=== PATIENT | male | born 1970 | race Caucasian/White ===

== ENCOUNTER 2018-05-17 15:53 | Observation (INO) ==
--- NOTE | 2018-05-17 16:08 | Emergency Department Note ---
Disposition Clinical Impression: Chest pain, Lung nodule, Pericardial effusion Disposition: Admitted As Inpatient Condition: Good General Adult HPI - General Chief complaint: ED Chest Pain Stated complaint: CP Time Seen by Provider: 05/17/18 15:57 Nursing Notes Reviewed: Yes Vital Signs Reviewed: Yes - History of Present Illness Pain Scale: 7 - Related Data Allergies Allergy/AdvReac Type Severity Reaction Status Date / Time No Known Allergies Allergy Verified 05/17/18 15:54 Course Vital Signs Temperature 98.5 F 05/17/18 15:54 Pulse Rate 107 05/17/18 15:54 Respiratory Rate 20 05/17/18 15:54 Blood Pressure 142/89 05/17/18 15:54 O2 Sat by Pulse Oximetry 98 05/17/18 15:54 Temperature 98.5 F 05/17/18 15:59 Pulse Rate 85 05/17/18 17:23 Respiratory Rate 18 05/17/18 17:23 Blood Pressure 138/107 05/17/18 17:23 O2 Sat by Pulse Oximetry 97 05/17/18 17:23 Oxygen Delivery Oxygen Delivery Room Air Medical Decision Making - [facility] Narrative Medical decision making narrative: 1637 hrs.: Patient has d-dimer is greater than 3000. A CT of the chest. Chest X-Ray 05/17/18 15:57 IMPRESSION: No acute process. D/ / Deny Hwang MD / Deny Hwang MD Interpreting Provider: Deny Hwang MD Chest CTA 05/17/18 16:35 IMPRESSION: 1. No evidence of pulmonary embolism. 2. Small nonspecific pericardial effusion. 3. Multiple bilateral pulmonary nodules the largest of which measures approximately 13 x 11 mm in the lingula. See recommendations below. 4. Nonspecific mildly enlarged sub- carinal lymph node. Attention on follow-up. 5. Mild paraseptal emphysematous changes in the pulmonary apices. Fleischner Society guidelines for follow-up and management of incidentally detected pulmonary nodules: Multiple Solid Nodules: Nodule size greater than 8 mm In a high-risk patient, CT at 3-6 months, then CT at 18-24 months. - Low risk patients include individuals with minimal or absent history of smoking and other known risk factors. - High risk patients include individuals with a history or smoking or known risk factors. Radiology 2017 http://pubs.rsna.org/doi/full/10.1148/radiol.[email or web address] D/ / Deny Hwang MD / Deny Hwang MD Interpreting Provider: Deny Hwang MD 1742 hrs.: No PE, he does have multiple bilateral pulmonary nodules which will need followed. Because of this chest pain being atypica, we will Talk to him about coming into the hospital and being ruled out for ACS. - Lab Data Result diagrams: 05/17/18 16:07 05/17/18 16:07 Lab Results 05/17/18 05/17/18 05/17/18 Range/Units 15:58 16:07 16:07 WBC 8.9 (4.3-11.1) K/mcL RBC 4.29 (4.19-5.50) M/mcL Hgb 12.4 L (12.9-16.9) g/dL Hct 37.3 L (37.5-50.1) % MCV 86.9 (83.0-100.0) fL MCH 28.9 (28.0-33.3) pg MCHC 33.2 (31.6-35.5) g/dL RDW 13.2 (11.5-14.5) % Plt Count 246 (140-400) K/mcL MPV 10.2 (9.4-12.4) fL Immature Gran % 0.7 (0-4) % Seg Neutrophils % 75.3 % Lymphocytes % 13.3 % Monocytes % 8.3 % Eosinophils % 2.1 % Basophils % 0.3 % Neutrophils # 6.7 (1.6-8.9) K/mcL Lymphocytes # 1.2 (0.6-4.6) K/mcL Monocytes # 0.7 (0.0-1.3) K/mcL Eosinophils # 0.2 (0.0-0.6) K/mcL Basophils # 0.0 (0.0-0.2) K/mcL D-Dimer 3228 H (0-500) ng/mLFEU Sodium 138 (136-145) mEq/L Potassium 3.7 (3.5-5.1) mEq/L Chloride 105 (98-107) mEq/L Carbon Dioxide 24 (23-29) mEq/L BUN 12 (6-20) mg/dL Creatinine 0.83 (0.70-1.30) mg/dL Est GFR ( Amer) > 60 (> 60) Est GFR (Non-Af Amer) > 60 (> 60) BUN/Creatinine Ratio 14 (6-26) Glucose 96 (70-105) mg/dL Calculated Osmolality 286 (280-300) Calcium 9.1 (8.6-10.3) mg/dL Troponin I < 0.03 (< 0.04) ng/mL Attestation Statement - Attestation Attestation: This documentation is done with the assistance of Dragon dictation. Despite efforts made to ensure accuracy, there may be inaccuracies in professor of forest planning or spelling and typographical errors. I examined this patient and my medical decision-making was reviewed with the Resident Physician. I agree with the documented findings, disposition and treatment plan as described except to the extent set forth below. Patient was seen and evaluated on arrival with Dr. Rodriguez and myself, agrees his evaluation and management plan, supervise care the patient's stay. Intermittent sharp chest pains been going across his neck and into the shoulder for about the last week and a half. Sits only takes a deep breath or moves. It is not reproducible here in the department. No history of cardiac disease in the past. He is a smoker father did have an MS at age 55 and . Regular cardiac workup and then reassess. He is in agreement with plan.
[2018-05-17] MEDS ORDERED: 0.9 % Sodium Chloride 1,000 ML IVC ONE (16:09)
[2018-05-17] MEDS ORDERED: Aspirin 81 MG TAB.CHEW PO ONE (16:09)
--- NOTE | 2018-05-17 16:09 | Emergency Department Note ---
Disposition Clinical Impression: Lung nodule, Pericardial effusion Chest pain Qualifiers: Chest pain type: unspecified Qualified Code(s): R07.9 - Chest pain, unspecified Disposition: Admitted As Inpatient Condition: Good Referrals: Lore De Jesus CNP [Primary Care Provider] - Forms: ED Satisfaction Letter Time of Disposition: 17:49 Chest Pain HPI - General Chief Complaint: ED Chest Pain Stated Complaint: CP Time Seen by Provider: 05/17/18 15:57 Source: patient Mode of arrival: ambulatory Limitations: no limitations Vital Signs Reviewed: Yes Nursing Notes Reviewed: Yes - History of Present Illness HPI Narrative: Patient presents to the ED with the chief complaint of chest pain. Patient reports that over the last week he has had some centralized chest heaviness and discomfort that is very pleuritic in nature. Does not seem to be worse with exertion and has no associated dyspnea, diaphoresis or nausea. He states today his pain changed and was a heavy pressure that radiated into his left neck, jaw and shoulder. Was intermittent and went away after a few minutes. He has no history of DVT or PE. No history of malignancy. His father did at an early age around 55 from heart disease, he does smoke and has a history of hyperlipidemia. States that the pain is gone right now. He still just feels funny. No fever, chills, cough, abdominal proceed nausea, vomiting or diarrhea. Severity scale (1-10): 7 - Related Data Allergies Allergy/AdvReac Type Severity Reaction Status Date / Time No Known Allergies Allergy Verified 05/17/18 15:54 Review of Systems: As reviewed in the HPI. All other systems reviewed are negative or normal. Chest Pain PMH - Past Medical History Medical history: Reports: hyperlipidemia, hypertension, syncope Psychiatric history: Reports: no psych history - Social History Smoking Status: Current every day smoker Alcohol use: Reports: occasionally Drug use: Reports: none Physical Exam - General Limitations: no limitations General appearance: alert, in no apparent distress - Head Head exam: atraumatic, normocephalic, normal inspection - Eye Eye exam: Present: normal appearance, PERRL, EOMI - ENT ENT exam: normal exam, normal oropharynx, mucous membranes moist - Neck Neck exam: Present: normal inspection, full ROM, trachea midline - Chest Chest inspection: Present: normal inspection, symmetric chest wall rise - Respiratory Respiratory exam: Present: normal lung sounds bilaterally - Cardiovascular Cardiovascular exam: Present: normal rhythm, tachycardia, normal heart sounds - Abdominal Exam Abdominal exam: Present: soft, Non-Tender. Absent: tenderness, distention, guarding, rebound, rigidity - Extremities Exam Extremities exam: Present: normal inspection, full ROM. Absent: tenderness, pedal edema - Expanded Lower Extremity Exam Hip/Pelvis exam: Present: normal inspection, full ROM - Back Exam Back exam: Present: normal inspection, full ROM. Absent: tenderness - Neurological Exam Neurological exam: Present: alert, oriented X3 - Psychiatric Psychiatric exam: Present: normal affect, normal mood - Skin Skin exam: Present: warm, dry, intact, normal color Course Course Narrative: We will get labs, EKG, chest x-ray and d-dimer. - Reevaluation(s) Reevaluation #1: D-dimer is extremely elevated. We will get a CT of the chest Reevaluation #2: CT showed multiple lung nodules as well as a small pericardial effusion. Due to his new pain and never having previous cardiac workup with strong family history, smoking history, hyperlipidemia, history would recommend admission in the hospital. Also think he would need an echocardiogram to further evaluate this pericardial effusion and will certainly need follow-up for his lung nodules. Discussed smoking cessation with the patient. We will admit the hospitalist service. Dr. Marshall Vital Signs Temperature 98.5 F 05/17/18 15:54 Pulse Rate 107 05/17/18 15:54 Respiratory Rate 20 05/17/18 15:54 Blood Pressure 142/89 05/17/18 15:54 O2 Sat by Pulse Oximetry 98 05/17/18 15:54 Temperature 98.5 F 05/17/18 15:59 Pulse Rate 85 05/17/18 17:23 Respiratory Rate 18 05/17/18 17:23 Blood Pressure 138/107 05/17/18 17:23 O2 Sat by Pulse Oximetry 97 05/17/18 17:23 Oxygen Delivery Oxygen Delivery Room Air Chest Pain - Medical Records Medical records reviewed: Yes I reviewed the patient's medical records. - Lab Data Lab results reviewed: Yes I reviewed the patient's lab results. Result diagrams: 05/17/18 16:07 05/17/18 16:07 Lab Results 05/17/18 05/17/18 05/17/18 Range/Units 15:58 16:07 16:07 WBC 8.9 (4.3-11.1) K/mcL RBC 4.29 (4.19-5.50) M/mcL Hgb 12.4 L (12.9-16.9) g/dL Hct 37.3 L (37.5-50.1) % MCV 86.9 (83.0-100.0) fL MCH 28.9 (28.0-33.3) pg MCHC 33.2 (31.6-35.5) g/dL RDW 13.2 (11.5-14.5) % Plt Count 246 (140-400) K/mcL MPV 10.2 (9.4-12.4) fL Immature Gran % 0.7 (0-4) % Seg Neutrophils % 75.3 % Lymphocytes % 13.3 % Monocytes % 8.3 % Eosinophils % 2.1 % Basophils % 0.3 % Neutrophils # 6.7 (1.6-8.9) K/mcL Lymphocytes # 1.2 (0.6-4.6) K/mcL Monocytes # 0.7 (0.0-1.3) K/mcL Eosinophils # 0.2 (0.0-0.6) K/mcL Basophils # 0.0 (0.0-0.2) K/mcL D-Dimer 3228 H (0-500) ng/mLFEU Sodium 138 (136-145) mEq/L Potassium 3.7 (3.5-5.1) mEq/L Chloride 105 (98-107) mEq/L Carbon Dioxide 24 (23-29) mEq/L BUN 12 (6-20) mg/dL Creatinine 0.83 (0.70-1.30) mg/dL Est GFR ( Amer) > 60 (> 60) Est GFR (Non-Af Amer) > 60 (> 60) BUN/Creatinine Ratio 14 (6-26) Glucose 96 (70-105) mg/dL Calculated Osmolality 286 (280-300) Calcium 9.1 (8.6-10.3) mg/dL Troponin I < 0.03 (< 0.04) ng/mL - Radiology Data Radiology results reviewed: Yes I reviewed the patient's radiology results. - EKG Data EKG attestation: Yes I reviewed and interpreted this EKG. EKG results narrative: Sinus tach, rate 104, NV interval 168, QRS 78, QTC 370, normal axis, no ischemic changes.
[2018-05-17 16:21] LABS: Basophils % 0.3 %; Eosinophils # 0.2 K/mcL (0.0-0.6); Eosinophils % 2.1 %; Hematocrit 37.3 % (37.5-50.1); Hemoglobin 12.4 g/dL (12.9-16.9); Immature Granulocytes % 0.7 % (0-4); Lymphocytes # 1.2 K/mcL (0.6-4.6); Lymphocytes % 13.3 %; Mean Corpuscular HGB Conc 33.2 g/dL (31.6-35.5); Mean Corpuscular Hemoglobin 28.9 pg (28.0-33.3); Mean Corpuscular Volume 86.9 fL (83.0-100.0); Mean Platelet Volume 10.2 fL (9.4-12.4); Monocytes # 0.7 K/mcL (0.0-1.3); Monocytes % 8.3 %; Neutrophils # 6.7 K/mcL (1.6-8.9); Platelet Count 246 K/mcL (140-400); Red Blood Count 4.29 M/mcL (4.19-5.50); Red Cell Distribution Width 13.2 % (11.5-14.5); Segmented Neutrophils % 75.3 %
[2018-05-17] MEDS ORDERED: Isovue-370 500 ML INFUS..BTL IV ONE (16:35)
[2018-05-17 16:43] LABS: BUN/Creatinine Ratio 14 (6-26); Blood Urea Nitrogen 12 mg/dL (6-20); Calcium 9.1 mg/dL (8.6-10.3); Carbon Dioxide 24 mEq/L (23-29); Chloride 105 mEq/L (98-107); Glucose 96 mg/dL (70-105); Osmolality,Calculated 286 (280-300); Potassium 3.7 mEq/L (3.5-5.1); Sodium 138 mEq/L (136-145); eGFR For African Americans > 60 (> 60); eGFR For Non-African Americans > 60 (> 60)
[2018-05-17 16:44] LABS: Troponin I < 0.03 ng/mL (< 0.04)
--- NOTE | 2018-05-17 20:43 | Internal Med History&Physical ---
Date of Encounter: 05/17/18 Time of Encounter: 07:00 Internal Medicine - H&P: HPI Chief complaint: CP History of present illness: Mr. Goodrich is a 48 year old male presented with one week history of centralized chest heaviness with pleuritic component that radiated into his left neck, jaw and shoulder. CT showed multiple lung nodules as well as a small pericardial effusion. giving strong family history, smoking history, hyperlipidemia, he was admitted for further evaluation Past Med Surg Social Fam HX - Past Medical History Medical history: hyperlipidemia, hypertension, syncope Psychiatric history: no psych history - Past Surgical History Additional surgical history: eye surgery - Social History Smoking Status: Current every day smoker Smokeless Tobacco Status: No Alcohol use: occasionally Drug use: none Internal Medicine - H&P: Meds Aspirin [Lo-Dose Aspirin EC] 81 mg DAILY 05/17/18 [History] Escitalopram [Lexapro] 10 mg DAILY 05/17/18 [History] Fludrocortisone Acetate [Florinef] 0.1 mg DAILY 05/17/18 [History] Gemfibrozil [Lopid] 600 mg BID 05/17/18 [History] Lansoprazole [Prevacid] 30 mg DAILY 05/17/18 [History] 3 Allergy/AdvReac Type Severity Reaction Status Date / Time No Known Allergies Allergy Verified 05/17/18 15:54 All Systems PM: A 10-system review of systems was performed and is negative for pertinent findings except as documented above in the HPI. - Constitutional Constitutional: no chills, no fever(s), no night sweats - Cardiovascular Cardiovascular ROS IM: chest pain, dyspnea, no diaphoresis, no lightheadedness, no palpitations, no syncope - Respiratory Respiratory: dyspnea, no cough, no wheezing, no excessive phlegm production - Gastrointestinal Gastrointestinal: no abdominal pain, no diarrhea, no hematemesis, no hematochezia, no melena, no nausea, no vomiting - Musculoskeletal Musculoskeletal ROS IM: no numbness, no tingling - Neurological Neurological ROS: no confusion, no convulsions, no focal weakness, no numbness, no tingling, no tremor(s) - Constitutional Vitals: Temp Pulse Resp BP Pulse Ox 98 F 85 15 127/86 99 05/17/18 19:39 05/17/18 19:39 05/17/18 19:39 05/17/18 19:39 05/17/18 19:39 General appearance: Present: A&O X 3 - Head Head exam: Present: atraumatic, normocephalic - Neck Neck exam general surgery: Present: supple, trachea midline. Absent: lymphadenopathy - Respiratory Respiratory exam: Present: CTAB. Absent: accessory muscle use, rales, rhonchi, wheezes - Cardiovascular Cardiovascular exam: Present: RRR, +S1, +S2. Absent: diastolic murmur, gallop, rubs, systolic murmur - GI/Abdominal GI/Abdominal exam: Present: normal bowel sounds, soft, no peritoneal signs. Absent: distended, tenderness - Extremities Exam Extremities exam: Present: warm, radial pulses palpable and symmetrical. Absent : calf tenderness, cyanotic, pedal edema Internal Med - H&P Results - Labs CBC & Chem 7: 05/18/18 02:52 05/18/18 02:52 - Assessment and plan (1) Chest pain Current Visit: Yes Status: Acute Assessment and plan: ASSESSMENT: - Chest pain DD *CAD *Muskuloskeletal CP - myofascial strain, costochondritis *GERD *Esophageal spasm *Pericarditis - PLAN: - cardiac enzymes x 2 q 8 hr - EKG now and in AM - ASA - O2 by NC to keep SpO2 greater than 92% - UA - Urine toxic screen - CBCD, BMP in AM - Fasting lipids - Morphine 2 mg IV q 2-4 hr PRN chest pain - Tylenol 650 mg PO q 4-6 hr PRN headache - Home meds (check list) - Heparin 5000 U SQ BID - 2D Echo - Cardiology consult Qualifiers: Chest pain type: unspecified Qualified Code(s): R07.9 - Chest pain, unspecified (2) Pericardial effusion Current Visit: Yes Status: Acute Assessment and plan: We will obtain echo. (3) Lung nodule Current Visit: Yes Status: Acute Assessment and plan: CT scan revealed Multiple bilateral pulmonary nodules the largest of which measures approximately 13 x 11 mm in the lingula. will consult pulmonary. (4) DVT prophylaxis Current Visit: Yes Status: Acute Assessment and plan: Heparin - Time Spent With Patient Total time spent is greater than 50% in coordination of care (as documented) at patient's floor/unit and/or counseling patient:
[2018-05-17] MEDS ORDERED: Naloxone 0.4 MG/ML INJ IVP PRN (20:44)
[2018-05-17 21:00] LABS: INR 1.2; Prothrombin Time 13.4 Seconds (9.4-12.1)
[2018-05-17] MEDS: 0.9 % Sodium Chloride 1,000 ML IVC SCH (22:44)
[2018-05-17 22:48] LABS: Bilirubin,Urine Negative (Negative); Blood,Urine Negative (Negative); Clarity,Urine Clear (Clear); Color,Urine Yellow (Yellow); Glucose,Urine (UA) Normal (Normal); Ketones,Urine Negative (Negative); Leukocyte Esterase,Urine Negative (Negative); Nitrite,Urine Negative (Negative); PH,Urine 6.5 pH Units (5.0-8.0); Protein,Urine Negative (Neg-Trace); Specific Gravity,Urine > 1.030 (1.010-1.025); Urobilinogen,Urine Normal (Normal)
[2018-05-17] MEDS: Aspirin 81 MG TAB.CHEW PO SCH (23:11)
[2018-05-18 03:37] LABS: Hematocrit 33.8 % (37.5-50.1); Hemoglobin 11.1 g/dL (12.9-16.9); Mean Corpuscular HGB Conc 32.8 g/dL (31.6-35.5); Mean Corpuscular Volume 88.3 fL (83.0-100.0); Platelet Count 200 K/mcL (140-400); Red Blood Count 3.83 M/mcL (4.19-5.50); Red Cell Distribution Width 13.2 % (11.5-14.5)
[2018-05-18 04:05] LABS: Alanine Aminotransferase 16 Units/L (7-52); Albumin 3.3 g/dL (3.5-5.7); Albumin/Globulin Ratio 1.3 (1.1-2.2); Alkaline Phosphatase 124 Units/L (34-104); Aspartate Amino Transferase 15 Units/L (13-39); BUN/Creatinine Ratio 15 (6-26); Bilirubin,Total 0.4 mg/dL (0.3-1.0); Blood Urea Nitrogen 12 mg/dL (6-20); Calcium 8.3 mg/dL (8.6-10.3); Carbon Dioxide 25 mEq/L (23-29); Chloride 108 mEq/L (98-107); Chol/HDL Ratio 3.7 (0-4.9); Cholesterol 115 mg/dL (< 200); Globulin 2.6 g/dL (2.4-3.5); Glucose 129 mg/dL (70-105); HDL Cholesterol 31 mg/dL (40-59); LDL Cholesterol,Calculated 59 mg/dL (0-99); Magnesium 2.1 mg/dL (1.6-2.6); Osmolality,Calculated 289 (280-300); Phosphorous 2.5 mg/dL (2.7-4.5); Potassium 3.5 mEq/L (3.5-5.1); Sodium 139 mEq/L (136-145); Total Protein 5.9 g/dL (6.4-8.9); Triglycerides 127 mg/dL (< 150); eGFR For African Americans > 60 (> 60); eGFR For Non-African Americans > 60 (> 60)
--- NOTE | 2018-05-18 06:55 | Pulmonology Consult Note ---
Date of Encounter: 05/18/18 Time of Encounter: 06:54 Assessment and Plan (1) Lung nodule Current Visit: Yes Status: Acute In conclusion this is a pleasant 48-year-old woman who presented with chest pain fentanyl small pericardial effusion. He has multiple risk factors for coronary disease in the past but no evidence of acute ischemia from a cardiac since during workup up to this point. CTA was performed was normal bilateral lung nodules the largest about 1.3 cm in the lingula. The patient is an increased risk for malignancy because of his history of smoking however the lesions himself do not appear to be malignant nature I suspect an acute or less likely chronic inflammatory process given concomitant pericardial effusion. Differential diagnosis would be acute viral syndrome and more chronic in nature could be things like rheumatoid arthritis or SLE less likely sarcoidosis but that could be entertained in the differential. Primary lung malignancy would be consider unlikely but he is at increased risk because of this is related to tobacco abuse. In general terms I suspect the patient will need laboratory testing at this time and evaluation by cardiology to rule out cardiac cause an outpatient for a follow-up with the radiographic surveillance of these lesions. Recs: Check inflammatory serologies including SAAD ANCA RF aCCP, ACEi Send sputum culture if can be obtained and viral PCR, along with chronic fungal serologies by immunoassay diffusion Check HIV Echocardiogram and formal cardiology consultation Tobacco abuse counseling was given to the patient nicotine replacement as requested Outpatient pulmonary follow-up for repeat CT scan including likely high- resolution CT scan of the chest and 4-6 weeks; bronchoscopy based upon results of workup/clinical course Outpatient pulmonary function testing DVT prophylaxis while inpatient Please call with any questions I relayed my impression and recommendations to the primary medicine service resident physician Dr. Deluna (2) Chest pain Current Visit: Yes Status: Acute Qualifiers: Chest pain type: unspecified Qualified Code(s): R07.9 - Chest pain, unspecified (3) Pericardial effusion Current Visit: Yes Status: Acute History of Present Illness Consult date: 05/18/18 Requesting physician: Gaby Marshall Reason for consult: abnormal CXR/CT Chief complaint: Chest Pain History of present illness: This is a 48-year-old gentleman who presented to the hospital yesterday for chest pain that was pleuritic in nature. No association with exertion. He denied any dyspnea diaphoresis or nausea. Chest pain prior to admission had changed from the pleuritic nature to have a pressure that radiated does look left neck jaw and shoulder. No history of venous thromboembolism in the past or history of malignancy. In the emergency department blood pressure stable and he had excellent oxygen saturation in the high 90s on room air. Chest x-ray was obtained which was notable for no acute process. He had a follow-up chest CTA performed without evidence of filling defect notable for small nonspecific pericardial effusion and multiple bilateral pulmonary nodules largest of which measured 13 x 11 mm in the lingula. He also had nonspecific mildly enlarged subcarinal lymph node. There was noted paraseptal emphysematous changes in the pulmonary apices. From a pulmonary perspective he started smoking at age of 15 smokes about a pack a day. 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 At home he does raise chickens and has horses along with many dogs [place] the home. No family history of lung disease. But he has a strong family history of coronary artery disease in his father and heart failure in his mother. In general he denies dry eyes or dry mouth or oral lesions difficulty swallowing he denies any significant joint pains that he wakes up with her redness or inflamed joints. Denies weight loss or night sweats or hemoptysis. Denies daily cough or sputum production. Some modest shortness of breath with exertion he has noticed that his felt more tired over last week during the symptoms no sick contacts or recent travel Past Med Surg Social Fam HX - Past Medical History Medical history: hyperlipidemia, hypertension, syncope Psychiatric history: no psych history - Past Surgical History Additional surgical history: eye surgery - Social History Smoking Status: Current every day smoker Smokeless Tobacco Status: No Alcohol use: occasionally Drug use: none Medications and Allergies Aspirin [Lo-Dose Aspirin EC] 81 mg DAILY 05/17/18 [History] Escitalopram [Lexapro] 10 mg DAILY 05/17/18 [History] Fludrocortisone Acetate [Florinef] 0.1 mg DAILY 05/17/18 [History] Gemfibrozil [Lopid] 600 mg BID 05/17/18 [History] Lansoprazole [Prevacid] 30 mg DAILY 05/17/18 [History] 3 Allergy/AdvReac Type Severity Reaction Status Date / Time No Known Allergies Allergy Verified 05/17/18 15:54 All Systems: The remainder of the systems were reviewed and are negative Physical Examination Vital Signs: Vital Signs, Last 4 Hours Temp Pulse Resp BP Pulse Ox 05/18/18 06:37 84 18 113/73 96 05/18/18 03:52 97.7 F 90 16 120/76 96 General appearance: no acute distress Eyes: nonicteric ENT: oropharynx moist, other (No lesions or thrush) Neck: supple Effort: normal Cardiovascular: regular rate and rhythm, other (No rub) Gastrointestinal: normoactive bowel sounds, soft, non-tender Integumentary: normal Extremities: no cyanosis, no edema, no clubbing, pink and warm, pulses normal, no ischemia or petechiae Musculoskeletal: no deformities normal mental status, non-focal exam, pupils equal and round mood appropriate Results - Laboratory Findings CBC and BMP: 05/18/18 02:52 05/18/18 02:52 PT/INR, D-dimer PT 13.4 Seconds (9.4-12.1) H 05/17/18 15:58 D-Dimer 3228 ng/mLFEU (0-500) H 05/17/18 15:58 Abnormal lab findings: Abnormal lab results RBC 3.83 M/mcL (4.19-5.50) L 05/18/18 02:52 Hgb 11.1 g/dL (12.9-16.9) L 05/18/18 02:52 Hct 33.8 % (37.5-50.1) L 05/18/18 02:52 PT 13.4 Seconds (9.4-12.1) H 05/17/18 15:58 D-Dimer 3228 ng/mLFEU (0-500) H 05/17/18 15:58 Chloride 108 mEq/L (98-107) H 05/18/18 02:52 Glucose 129 mg/dL (70-105) H 05/18/18 02:52 Calcium 8.3 mg/dL (8.6-10.3) L 05/18/18 02:52 Phosphorus 2.5 mg/dL (2.7-4.5) L 05/18/18 02:52 Alkaline Phosphatase 124 Units/L (34-104) H 05/18/18 02:52 Serum Total Protein 5.9 g/dL (6.4-8.9) L 05/18/18 02:52 Albumin 3.3 g/dL (3.5-5.7) L 05/18/18 02:52 HDL Cholesterol 31 mg/dL (40-59) L 05/18/18 02:52 Ur Specific [place] > 1.030 (1.010-1.025) H 05/17/18 22:37 - Diagnostic Findings Chest x-ray: report reviewed, image reviewed CT scan - chest: report reviewed, image reviewed - Clinical Findings Intake & Output: Intake & Output 05/17/18 05/17/18 05/18/18 15:59 23:59 07:59 Intake Total 0 / 0 0 / 0 Output Total 550 / 550 400 / 400 Balance -550 / -550 -400 / -400 Weight 99.9 kg 99.9 kg Consult Discharge Plan - Plan Referrals: Lore De Jesus, [employer] [Primary Care Provider] -
[2018-05-18] MEDS: 0.9 % Sodium Chloride 1,000 ML IVC SCH (07:29)
[2018-05-18] MEDS: Aspirin 81 MG TAB.CHEW PO SCH (08:25)
--- NOTE | 2018-05-18 08:35 | Internal Med Progress Note ---
<Chin Deluna - Last Filed: 05/18/18 17:22> Date of Encounter: 05/18/18 Time of Encounter: 12:00 - Assessment and plan (1) Chest pain Current Visit: Yes Status: Acute Assessment and plan: - Etiology unclear at the moment - it could be likely due to mild pericardial effusion, or a potential inflammatory etiology considering the fact that ESR: 77 CRP: 122 - patient in no acute distress at the moment and is not endorsing any pain as of now - Echocardiography, stress test pending. Tests to rule out infectious etiology ( Resp inf panel/ Fungal panel by Immunodiff) pending Qualifiers: Chest pain type: unspecified Qualified Code(s): R07.9 - Chest pain, unspecified; R07.8 - Other chest pain (2) Lung nodule Current Visit: Yes Status: Acute Assessment and plan: - Chest CT showed multiple lung nodules and paraseptal emphysemaous changes, - Pulmonology has been consulted- as per their opinion, the lesion themselves do not appear to be malignant but the patient could be at an increased risk for malignancy because of his smoking Hx - Further work up pending to rule put acute viral syndrome or more chronic conditions like RA , SLE, or less likely sarcoidosis . - (3) Pericardial effusion Current Visit: Yes Status: Acute Assessment and plan: - likely due to some kind of acute inflammtory process. ESR: 77, CRP: 122 - Chest CT showed small non-specifc pericardial effusion, patient presented with pleuritic chest pain on admission - Work up pending to rule out viral/ auto-immune etiology (SLE/RA) (4) DVT prophylaxis Current Visit: Yes Status: Acute Assessment and plan: SQ heparin - Time Spent With Patient Total time spent is greater than 50% in coordination of care (as documented) at patient's floor/unit and/or counseling patient: - Subjective Interval history: 48 y.o male who was admitted for chest pain. No acute events overnight. Patient was A&O*3 when i met him. He did not complain of any chest pain while I was in the room. - Constitutional Vitals: Temp Pulse Resp BP Pulse Ox 97.7 F 84 18 113/73 96 05/18/18 03:52 05/18/18 06:37 05/18/18 06:37 05/18/18 06:37 05/18/18 06:37 General appearance: Present: A&O X 3 - Head Head exam: Present: atraumatic, normocephalic - ENT ENT exam: Present: normal exam - Neck Neck exam general surgery: Present: full ROM, trachea midline - Respiratory Respiratory exam: Present: CTAB Additional comments: no rales, ronchi or wheezing - Cardiovascular Cardiovascular exam: Present: RRR Additional comments: no gallops, murmur or rubs - Neurological Exam Neurological exam: Present: alert, oriented X3 - Psychiatric Additional comments: good mentation Internal Medicine: Result - Labs CBC & Chem 7: 05/18/18 02:52 05/18/18 02:52 Labs: Short CBC 05/18/18 Range/Units 02:52 WBC 6.6 (4.3-11.1) K/mcL Hgb 11.1 L (12.9-16.9) g/dL Hct 33.8 L (37.5-50.1) % Plt Count 200 (140-400) K/mcL BMP 05/18/18 02:52 Sodium 139 Potassium 3.5 Chloride 108 H Carbon Dioxide 25 BUN 12 Creatinine 0.81 Glucose 129 H Calcium 8.3 L Cardiac Enzymes 05/17/18 05/18/18 Range/Units 21:53 02:52 Troponin I < 0.03 < 0.03 (< 0.04) ng/mL Liver Function 05/18/18 Range/Units 02:52 Total Bilirubin 0.4 (0.3-1.0) mg/dL AST 15 (13-39) Units/L ALT 16 (7-52) Units/L Alkaline Phosphatase 124 H (34-104) Units/L Albumin 3.3 L (3.5-5.7) g/dL Urine 05/17/18 Range/Units 22:37 Urine Color Yellow (Yellow) Urine Clarity Clear (Clear) Urine pH 6.5 (5.0-8.0) pH Units Ur Specific Hansen > 1.030 H (1.010-1.025) Urine Protein Negative (Neg-Trace) mg/dL Urine Glucose (UA) Normal (Normal) mg/dL - ABG Interpretation ABG results: PT/INR, D-dimer PT 13.4 Seconds (9.4-12.1) H 05/17/18 15:58 D-Dimer 3228 ng/mLFEU (0-500) H 05/17/18 15:58 Consult Discharge Plan - Plan Referrals: Lore De Jesus, [facility] [Primary Care Provider] - <Glenn Howard - Last Filed: 05/18/18 19:12> Date of Encounter: 05/18/18 - Assessment and plan (1) Pericardial effusion Current Visit: Yes Status: Acute (2) Chest pain Current Visit: Yes Status: Acute Qualifiers: Chest pain type: other chest pain Qualified Code(s): R07.89 - Other chest pain; R07.8 - Other chest pain (3) Lung nodule Current Visit: Yes Status: Acute (4) Tobacco abuse Current Visit: Yes Status: Chronic (5) DVT prophylaxis Current Visit: Yes Status: Acute - Time Spent With Patient Total time spent is greater than 50% in coordination of care (as documented) at patient's floor/unit and/or counseling patient: - Constitutional Vitals: Temp Pulse Resp BP Pulse Ox 98.6 F 90 18 123/85 97 05/18/18 15:38 05/18/18 15:38 05/18/18 15:38 05/18/18 15:38 05/18/18 15:38 Internal Medicine: Result - Labs CBC & Chem 7: 05/18/18 02:52 05/18/18 02:52 Labs: Short CBC 05/18/18 Range/Units 02:52 WBC 6.6 (4.3-11.1) K/mcL Hgb 11.1 L (12.9-16.9) g/dL Hct 33.8 L (37.5-50.1) % Plt Count 200 (140-400) K/mcL BMP 05/18/18 02:52 Sodium 139 Potassium 3.5 Chloride 108 H Carbon Dioxide 25 BUN 12 Creatinine 0.81 Glucose 129 H Calcium 8.3 L Cardiac Enzymes 05/17/18 05/18/18 05/18/18 Range/Units 21:53 02:52 08:38 Troponin I < 0.03 < 0.03 < 0.03 (< 0.04) ng/mL Liver Function 05/18/18 Range/Units 02:52 Total Bilirubin 0.4 (0.3-1.0) mg/dL AST 15 (13-39) Units/L ALT 16 (7-52) Units/L Alkaline Phosphatase 124 H (34-104) Units/L Albumin 3.3 L (3.5-5.7) g/dL Urine 05/17/18 Range/Units 22:37 Urine Color Yellow (Yellow) Urine Clarity Clear (Clear) Urine pH 6.5 (5.0-8.0) pH Units Ur Specific Hansen > 1.030 H (1.010-1.025) Urine Protein Negative (Neg-Trace) mg/dL Urine Glucose (UA) Normal (Normal) mg/dL - ABG Interpretation ABG results: PT/INR, D-dimer PT 13.4 Seconds (9.4-12.1) H 05/17/18 15:58 D-Dimer 3228 ng/mLFEU (0-500) H 05/17/18 15:58 - Attending Attestation I examined this patient and my medical decision-making was reviewed with the Resident Physician on 05/18/18. I agree with the documented findings, disposition and treatment plan as described except to the extent set forth below. Mr Goodrich is currently admitted for bilateral pulmonary nodules and pericardial effusion. He remains moderate to high risk due to potential for worsening clinical status. Mr Goodrich is feeling about the same. No fever or chills. Some cough. Still with some chest pain. Exam alert Comfortable Mucus membranes dry Heart reg Lungs diminished Abd soft I/P 1. Chest pain 2. Pericardial effusion 3. pulmonary nodules. stress test tomorrow. Further diagnoses and plan as above.
--- NOTE | 2018-05-18 08:46 | Electrocardiograph Report ---
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
[2018-05-18 11:41] LABS: Adenovirus Not Detected (Not Detect); Bordetella Pertussis Not Detected (Not Detect); Chlamydophila pneumoniae Not Detected (Not Detect); Coronavirus 229E Not Detected (Not Detect); Coronavirus HKU1 Not Detected (Not Detect); Coronavirus NL63 Not Detected (Not Detect); Coronavirus OC43 Not Detected (Not Detect); Human Metapneumovirus Not Detected (Not Detect); Human Rhinovirus/Enterovirus Not Detected (Not Detect); Influenza A Subtype 2009 H1 Not Detected (Not Detect); Influenza A Untypeable Not Detected (Not Detect); Influenza B Not Detected (Not Detect); Mycoplasma pneumoniae Not Detected (Not Detect); Parainfluenza Virus 1 Not Detected (Not Detect); Parainfluenza Virus 2 Not Detected (Not Detect); Parainfluenza Virus 3 Not Detected (Not Detect); Parainfluenza Virus 4 Not Detected (Not Detect); Respiratory Syncytial Virus Not Detected (Not Detect)
[2018-05-18] MEDS: *HR* Heparin 5,000 UNIT/ML VIAL SQ SCH (17:18)
[2018-05-18] MEDS ORDERED: Acetaminophen 325 MG TABLET PO PRN (21:55)
[2018-05-19 05:07] LABS: Alanine Aminotransferase 32 Units/L (7-52); Albumin 3.4 g/dL (3.5-5.7); Albumin/Globulin Ratio 1.2 (1.1-2.2); Alkaline Phosphatase 203 Units/L (34-104); Aspartate Amino Transferase 27 Units/L (13-39); BUN/Creatinine Ratio 15 (6-26); Bilirubin,Total 0.6 mg/dL (0.3-1.0); Blood Urea Nitrogen 10 mg/dL (6-20); Calcium 8.7 mg/dL (8.6-10.3); Carbon Dioxide 25 mEq/L (23-29); Chloride 109 mEq/L (98-107); Globulin 2.9 g/dL (2.4-3.5); Glucose 95 mg/dL (70-105); Osmolality,Calculated 287 (280-300); Potassium 4.5 mEq/L (3.5-5.1); Sodium 139 mEq/L (136-145); Total Protein 6.3 g/dL (6.4-8.9); eGFR For African Americans > 60 (> 60); eGFR For Non-African Americans > 60 (> 60)
[2018-05-19] MEDS: *HR* Heparin 5,000 UNIT/ML VIAL SQ SCH (05:36)
[2018-05-19 10:18] LABS: Phosphorous 3.1 mg/dL (2.7-4.5)
[2018-05-19] MEDS: Aspirin 81 MG TAB.CHEW PO SCH (10:30)
--- NOTE | 2018-05-19 11:17 | Internal Med Progress Note ---
<Chin Deluna - Last Filed: 05/19/18 12:29> Date of Encounter: 05/19/18 Time of Encounter: 11:30 - Assessment and plan (1) Chest pain Current Visit: Yes Status: Acute Assessment and plan: - Etiology unclear at the moment - it could be likely due to mild pericardial effusion, or a potential inflammatory etiology considering the fact that ESR: 77 CRP: 122 - patient in no acute distress at the moment and is not endorsing any pain as of now - Echocardiography findings are WNL. stress test performed this morning, results pending. Tests to rule out infectious etiology (Resp inf panel/ Fungal panel by Immunodiff) pending Qualifiers: Chest pain type: other chest pain Qualified Code(s): R07.89 - Other chest pain; R07.8 - Other chest pain (2) Lung nodule Current Visit: Yes Status: Acute Assessment and plan: - Chest CT showed multiple lung nodules and paraseptal emphysemaous changes, - Pulmonology has been consulted- as per their opinion, the lesion themselves do not appear to be malignant but the patient could be at an increased risk for malignancy because of his smoking Hx - Further work up pending to rule put acute viral syndrome or more chronic conditions like RA , SLE, or less likely sarcoidosis . (3) Pericardial effusion Current Visit: Yes Status: Acute Assessment and plan: likely due to some kind of acute inflammtory process. ESR: 77, CRP: 122 - Chest CT showed small non-specifc pericardial effusion, patient presented with pleuritic chest pain on admission - Work up pending to rule out viral/ auto-immune etiology (SLE/RA) (4) DVT prophylaxis Current Visit: Yes Status: Acute Assessment and plan: sc heparin (5) Tobacco abuse Current Visit: Yes Status: Chronic Assessment and plan: counselled on smoking cessation - Time Spent With Patient Total time spent is greater than 50% in coordination of care (as documented) at patient's floor/unit and/or counseling patient: - Subjective Interval history: 48 y.o male who was admitted for chest pain. Patient has gone for the stress test . No acute events overnight. . no acute events overnight - Constitutional Vitals: Temp Pulse Resp BP Pulse Ox 97.8 F 97 17 120/80 92 05/19/18 10:17 05/19/18 10:17 05/19/18 10:17 05/19/18 10:17 05/19/18 10:17 General appearance: Present: A&O X 3 - Head Head exam: Present: atraumatic, normocephalic - ENT ENT exam: Present: normal exam - Respiratory Respiratory exam: Present: CTAB - Cardiovascular Cardiovascular exam: Present: RRR Internal Medicine: Result - Labs CBC & Chem 7: 05/18/18 02:52 05/19/18 04:24 Labs: BMP 05/19/18 04:24 Sodium 139 Potassium 4.5 Chloride 109 H Carbon Dioxide 25 BUN 10 Creatinine 0.67 L Glucose 95 Calcium 8.7 Liver Function 05/19/18 Range/Units 04:24 Total Bilirubin 0.6 (0.3-1.0) mg/dL AST 27 (13-39) Units/L ALT 32 (7-52) Units/L Alkaline Phosphatase 203 H (34-104) Units/L Albumin 3.4 L (3.5-5.7) g/dL - ABG Interpretation ABG results: PT/INR, D-dimer PT 13.4 Seconds (9.4-12.1) H 05/17/18 15:58 D-Dimer 3228 ng/mLFEU (0-500) H 05/17/18 15:58 - Impressions Impressions Echocardiogram 05/18/18 06:13 Impressions: LVEF 60%. Normal LV chamber size, wall thickness and function. Mild left ventricular diastolic dysfunction. Normal right ventricular structure and function. No evidence of pulmonary hypertension. No significant valvular dysfunction. Small pericardial effusion. No evidence of tamponade. Left Ventricular Wall Motion: Rest Echo Findings All wall segments showed normal motion. Findings: Study Quality * Technically adequate exam. ECG Findings * Normal sinus rhythm. Left Ventricle * LVEF 60%. * Normal LV chamber size, wall thickness and function. * Mild left ventricular diastolic dysfunction. Right Ventricle * Normal right ventricular structure and function. Left Atrium * Mildly dilated left atrium. Right Atrium * Normal right atrial size. Aortic Valve * Aortic valve not well visualized. * No aortic regurgitation. * No aortic stenosis. Mitral Valve * Normal mitral valve structure and function. * No mitral regurgitation. * No mitral stenosis. Tricuspid Valve * Normal tricuspid valve structure and function. * Trace tricuspid regurgitation. * No evidence of pulmonary hypertension. Pulmonic Valve * Pulmonic valve not well visualized. * No pulmonic regurgitation. Aorta * Normally sized aortic root. Pericardium * Small pericardial effusion. No evidence of tamponade. Pulmonary Artery * Normal visualized portions of the main pulmonary artery. IVC * The IVC is not dilated. Consult Discharge Plan - Plan Instructions: Chest Pain (DC), Pericardial Effusion (DC), Pericardial Effusion (GEN), Pulmonary Nodules (DC), Pulmonary Nodules (GEN), Cigarette Smoking and Your Health, Dedicated Regional Driver (GEN) Referrals: Lore De Jesus CNP [Primary Care Provider] - Jasen Ramirez MD [Partnered Physician] - (Follow up in 2 weeks. Pt can only have a Tuesday appointment. Call on Tuesday to make an appointment. ) <Glenn Howard - Last Filed: 05/19/18 18:04> Date of Encounter: 05/19/18 - Assessment and plan (1) Chest pain Current Visit: Yes Status: Acute Qualifiers: Chest pain type: other chest pain Qualified Code(s): R07.89 - Other chest pain; R07.8 - Other chest pain (2) Lung nodule Current Visit: Yes Status: Acute (3) Pericardial effusion Current Visit: Yes Status: Acute (4) DVT prophylaxis Current Visit: Yes Status: Acute (5) Tobacco abuse Current Visit: Yes Status: Chronic - Time Spent With Patient Total time spent is greater than 50% in coordination of care (as documented) at patient's floor/unit and/or counseling patient: - Constitutional Vitals: Temp Pulse Resp BP Pulse Ox 98.5 F 89 18 124/90 95 05/19/18 15:18 05/19/18 15:18 05/19/18 15:18 05/19/18 15:18 05/19/18 15:18 Internal Medicine: Result - Labs CBC & Chem 7: 05/18/18 02:52 05/19/18 04:24 Labs: BMP 05/19/18 04:24 Sodium 139 Potassium 4.5 Chloride 109 H Carbon Dioxide 25 BUN 10 Creatinine 0.67 L Glucose 95 Calcium 8.7 Liver Function 05/19/18 Range/Units 04:24 Total Bilirubin 0.6 (0.3-1.0) mg/dL AST 27 (13-39) Units/L ALT 32 (7-52) Units/L Alkaline Phosphatase 203 H (34-104) Units/L Albumin 3.4 L (3.5-5.7) g/dL - ABG Interpretation ABG results: PT/INR, D-dimer PT 13.4 Seconds (9.4-12.1) H 05/17/18 15:58 D-Dimer 3228 ng/mLFEU (0-500) H 05/17/18 15:58 - Impressions Impressions Echocardiogram 05/18/18 06:13 Impressions: LVEF 60%. Normal LV chamber size, wall thickness and function. Mild left ventricular diastolic dysfunction. Normal right ventricular structure and function. No evidence of pulmonary hypertension. No significant valvular dysfunction. Small pericardial effusion. No evidence of tamponade. Left Ventricular Wall Motion: Rest Echo Findings All wall segments showed normal motion. Findings: Study Quality * Technically adequate exam. ECG Findings * Normal sinus rhythm. Left Ventricle * LVEF 60%. * Normal LV chamber size, wall thickness and function. * Mild left ventricular diastolic dysfunction. Right Ventricle * Normal right ventricular structure and function. Left Atrium * Mildly dilated left atrium. Right Atrium * Normal right atrial size. Aortic Valve * Aortic valve not well visualized. * No aortic regurgitation. * No aortic stenosis. Mitral Valve * Normal mitral valve structure and function. * No mitral regurgitation. * No mitral stenosis. Tricuspid Valve * Normal tricuspid valve structure and function. * Trace tricuspid regurgitation. * No evidence of pulmonary hypertension. Pulmonic Valve * Pulmonic valve not well visualized. * No pulmonic regurgitation. Aorta * Normally sized aortic root. Pericardium * Small pericardial effusion. No evidence of tamponade. Pulmonary Artery * Normal visualized portions of the main pulmonary artery. IVC * The IVC is not dilated. - Attending Attestation I examined this patient and my medical decision-making was reviewed with the Resident Physician on 05/19/18. I agree with the documented findings, disposition and treatment plan as described except to the extent set forth below. Please see discharge summary of this date.
[2018-05-19 15:21] VITALS: BP 124/90
--- NOTE | 2018-05-19 16:24 | Discharge Summary ---
- NOTES TO OUTPATIENT PROVIDER Notes to Outpatient Provider: Mr Goodrich was hospitalized for bilateral pulmonary nodules. He was seen by pulmonary and this was felt to be noninfectious and most likely not malignant. He was having some chest pain and stress was negative. Labs are pending at this time. Orders not resulted at time of discharge: Pending orders 05/18/18 10:02 Angiotensin Converting Enzyme Routine Fungal Ab by Immunodiffusion Routine MPO/PR3 (ANCA) Antibodies Routine 05/18/18 10:03 SAAD IgG ESAU rflx IFA Routine 05/19/18 08:53 NM jenni perf SPECT multi [NM] Routine Date of Encounter: 05/19/18 Time of Encounter: 15:00 - Discharge Diagnosis (1) Pericardial effusion Priority: Primary Status: Acute (2) Chest pain Priority: Secondary Status: Resolved Qualifiers: Chest pain type: other chest pain Qualified Code(s): R07.89 - Other chest pain; R07.8 - Other chest pain (3) Lung nodule Priority: Secondary Status: Chronic (4) Tobacco abuse Priority: Secondary Status: Chronic Hospital course: Mr. Goodrich is a 48 year old male - Time Spent with Patient Total time spent providing and/or coordinating discharge services: - Discharge Medications Home Medications: Aspirin [Lo-Dose Aspirin EC] 81 mg PO QPM 05/17/18 [History] Escitalopram [Lexapro] 10 mg DAILY 05/17/18 [History] Fludrocortisone Acetate [Florinef] 0.1 mg PO DAILY 05/17/18 [History] Gemfibrozil [Lopid] 600 mg PO BID 05/17/18 [History] Lansoprazole [Prevacid] 30 mg PO DAILY 05/17/18 [History] Cholecalciferol (D-3) [Vitamin D] 5,000 unit PO DAILY 05/18/18 [History] Mv-Mn/FA/Lycopene/Lut/Hb#178 [Toi Multivit For Men Caplet] 1 tab PO DAILY 05/18 [History] [place]-3/Dha/Epa/Fish Oil [Fish Oil 1,000 mg Softgel] 1 cap PO BID 05/18/18 [ History] Allergies/Adverse Reactions: 3 Allergy/AdvReac Type Severity Reaction Status Date / Time No Known Allergies Allergy Verified 05/18/18 10:17 Date of admission: 05/17/18 18:13 Primary care physician: Lore De Jesus CNP Consults: 05/18/18 06:18 Consult to Pulmonology [CONS] Routine Consulting Provider: [facility] Reason for Consult: Multiple bilateral pulmonary nodules the largest of which measures approximately 13 x 11 mm in the lingula. Time Notified: 06:18 Call Completed: Yes Discharging clinician: Glenn Howard Anticipated date of discharge: 05/19/18 - Constitutional Vitals: Temp Pulse Resp BP Pulse Ox 98.5 F 89 18 124/90 95 05/19/18 15:18 05/19/18 15:18 05/19/18 15:18 05/19/18 15:18 05/19/18 15:18 General appearance: Present: A&O X 3 - Patient Status Disposition: Home, Self-Care Condition: Good Functional capacity at discharge: independent ambulation Overall status at discharge: patient is progressing back to baseline - Discharge Instructions Instructions: Chest Pain (DC), Pericardial Effusion (DC), Pericardial Effusion (GEN), Pulmonary Nodules (DC), Pulmonary Nodules (GEN), Cigarette Smoking and Your Health, Stereotyper Helper (GEN) Follow Up With: Lore De Jesus CNP [Primary Care Provider] - 06/19/18 8:10 am Jasen Ramirez MD [Partnered Physician] - (Follow up in 2 weeks. Pt can only have a Tuesday appointment. Call on Tuesday to make an appointment. ) - Diet and Activity Activity: increase activity as tolerated Diet: advance to your usual diet
[2018-05-20 11:05] LABS: ANA IgG by ELISA NONE DETECTED (None Detected)
[2018-05-20 11:51] LABS: Myeloperoxidase Ab 43 AU/mL (0-19); Serine Protease-3 Antibody 0 AU/mL (0-19)
[2018-05-22 08:26] LABS: Aspergillus spp. Ab by ID NONE DETECTED (None Detected); Blastomyces dermatitidis Ab ID NONE DETECTED (None Detected); Coccidioides immitis Ab by ID NONE DETECTED (None Detected); Histoplasma spp.Ab by ID NONE DETECTED (None Detected)
== END 2018-05-19 18:28 | disposition home or self-care (01) ==
LOC: 2NENU 15:53 → EMEROO 15:53 → SUATTDRO 18:13 → 2NENU 19:02
PROVIDERS: ADMIT Internal Medicine Nephrology; ATTEND Internal Medicine

== ENCOUNTER 2018-05-25 17:39 | Inpatient (IN) ==
[2018-05-25 18:36] LABS: Basophils % 0.4 %; Eosinophils # 0.2 K/mcL (0.0-0.6); Eosinophils % 2.3 %; Hematocrit 33.7 % (37.5-50.1); Immature Granulocytes % 0.6 % (0-4); Lymphocytes # 0.9 K/mcL (0.6-4.6); Lymphocytes % 9.8 %; Mean Corpuscular HGB Conc 32.6 g/dL (31.6-35.5); Mean Corpuscular Hemoglobin 28.4 pg (28.0-33.3); Mean Corpuscular Volume 86.9 fL (83.0-100.0); Mean Platelet Volume 9.9 fL (9.4-12.4); Monocytes # 0.8 K/mcL (0.0-1.3); Monocytes % 7.9 %; Neutrophils # 7.6 K/mcL (1.6-8.9); Platelet Count 333 K/mcL (140-400); Red Blood Count 3.88 M/mcL (4.19-5.50); Red Cell Distribution Width 13.3 % (11.5-14.5)
--- NOTE | 2018-05-25 18:46 | Emergency Department Note ---
Disposition Clinical Impression: Chest pain, Pericardial effusion, Pneumonia Disposition: Admitted As Inpatient Condition: Good Referrals: Lore De Jesus, BOAT WR[employer]PER [Primary Care Provider] - Forms: ED Satisfaction Letter General Adult HPI - General Chief complaint: ED Chest Pain Stated complaint: CP Time Seen by Provider: 05/25/18 17:47 - History of Present Illness Pain Scale: 10 - Related Data Home Medications Medication Instructions Recorded Confirmed Aspirin [Lo-Dose Aspirin EC] 81 mg PO QPM 05/17/18 05/25/18 Escitalopram [Lexapro] 10 mg PO DAILY 05/17/18 05/25/18 Fludrocortisone Acetate [Florinef] 0.1 mg PO DAILY 05/17/18 05/25/18 Gemfibrozil [Lopid] 600 mg PO BID 05/17/18 05/25/18 Lansoprazole [Prevacid] 30 mg PO DAILY 05/17/18 05/25/18 Cholecalciferol (D-3) [Vitamin D] 5,000 unit PO DAILY 05/18/18 05/25/18 Mv-Mn/FA/Lycopene/Lut/Hb#178 [Toi 1 tab PO DAILY 05/18/18 05/25/18 Multivit For Men Caplet] [place]-3/Dha/Epa/Fish Oil [Fish Oil 1 cap PO BID 05/18/18 05/25/18 1,000 mg Softgel] Allergies Allergy/AdvReac Type Severity Reaction Status Date / Time No Known Allergies Allergy Verified 05/18/18 10:17 Past Medical History - Past Medical History Medical history: Reports: hyperlipidemia, hypertension, syncope Psychiatric history: Reports: no psych history - Social History Smoking Status: Current every day smoker Smokeless Tobacco Status: No Alcohol use: Reports: occasionally Drug use: Reports: none Course Vital Signs Temperature 100.2 F H 05/25/18 17:42 Pulse Rate 109 05/25/18 17:42 Respiratory Rate 20 05/25/18 17:42 Blood Pressure 126/87 05/25/18 17:42 O2 Sat by Pulse Oximetry 96 05/25/18 17:42 Temperature 99.2 F 05/25/18 20:50 Pulse Rate 95 05/25/18 20:50 Respiratory Rate 18 05/25/18 20:50 Blood Pressure 130/80 05/25/18 20:50 O2 Sat by Pulse Oximetry 97 05/25/18 20:59 Oxygen Delivery Oxygen Delivery Room Air Medical Decision Making - Lab Data Result diagrams: 05/25/18 18:08 05/25/18 18:08 Lab Results 05/25/18 05/25/18 05/25/18 Range/Units 18:08 18:08 18:08 WBC 9.6 (4.3-11.1) K/mcL RBC 3.88 L (4.19-5.50) M/mcL Hgb 11.0 L (12.9-16.9) g/dL Hct 33.7 L (37.5-50.1) % MCV 86.9 (83.0-100.0) fL MCH 28.4 (28.0-33.3) pg MCHC 32.6 (31.6-35.5) g/dL RDW 13.3 (11.5-14.5) % Plt Count 333 (140-400) K/mcL MPV 9.9 (9.4-12.4) fL Immature Gran % 0.6 (0-4) % Seg Neutrophils % 79.0 % Lymphocytes % 9.8 % Monocytes % 7.9 % Eosinophils % 2.3 % Basophils % 0.4 % Neutrophils # 7.6 (1.6-8.9) K/mcL Lymphocytes # 0.9 (0.6-4.6) K/mcL Monocytes # 0.8 (0.0-1.3) K/mcL Eosinophils # 0.2 (0.0-0.6) K/mcL Basophils # 0.0 (0.0-0.2) K/mcL PT 14.6 H (9.4-12.1) Seconds INR 1.3 APTT 32.9 (26.0-36.0) Seconds D-Dimer 13360 H (0-500) ng/mLFEU Sodium 136 (136-145) mEq/L Potassium 4.2 (3.5-5.1) mEq/L Chloride 102 (98-107) mEq/L Carbon Dioxide 25 (23-29) mEq/L BUN 15 (6-20) mg/dL Creatinine 0.83 (0.70-1.30) mg/dL Est GFR ( Amer) > 60 (> 60) Est GFR (Non-Af Amer) > 60 (> 60) BUN/Creatinine Ratio 18 (6-26) Glucose 98 (70-105) mg/dL Calculated Osmolality 283 (280-300) Lactic Acid (0.5-2.2) mmol/L Calcium 8.9 (8.6-10.3) mg/dL Total Bilirubin (0.3-1.0) mg/dL Direct Bilirubin (0.0-0.2) mg/dL Indirect Bilirubin (0.0-1.2) mg/dL AST (13-39) Units/L ALT (7-52) Units/L Alkaline Phosphatase (34-104) Units/L Troponin I < 0.03 (< 0.04) ng/mL Serum Total Protein (6.4-8.9) g/dL Albumin (3.5-5.7) g/dL Globulin (2.4-3.5) g/dL Albumin/Globulin Ratio (1.1-2.2) Urine Color (Yellow) Urine Clarity (Clear) Urine pH (5.0-8.0) pH Units Ur Specific [place] (1.010-1.025) Urine Protein (Neg-Trace) mg/dL Urine Glucose (UA) (Normal) mg/dL Urine Ketones (Negative) mg/dL Urine Blood (Negative) Urine Nitrite (Negative) Urine Bilirubin (Negative) Urine Urobilinogen (Normal) mg/dL Ur Leukocyte Esterase (Negative) Urine Microscopic RBC (0-3) per hpf Urine Microscopic WBC (0-3) per hpf Ur Squamous Epith Cells (None-Few) per lpf Urine Bacteria (None-Few) per hpf Hyaline Casts (None-Few) per lpf Ur Culture Indicated? (NO) 05/25/18 05/25/18 05/25/18 Range/Units 19:47 19:47 19:54 WBC (4.3-11.1) K/mcL RBC (4.19-5.50) M/mcL Hgb (12.9-16.9) g/dL Hct (37.5-50.1) % MCV (83.0-100.0) fL MCH (28.0-33.3) pg MCHC (31.6-35.5) g/dL RDW (11.5-14.5) % Plt Count (140-400) K/mcL MPV (9.4-12.4) fL Immature Gran % (0-4) % Seg Neutrophils % % Lymphocytes % % Monocytes % % Eosinophils % % Basophils % % Neutrophils # (1.6-8.9) K/mcL Lymphocytes # (0.6-4.6) K/mcL Monocytes # (0.0-1.3) K/mcL Eosinophils # (0.0-0.6) K/mcL Basophils # (0.0-0.2) K/mcL PT (9.4-12.1) Seconds INR APTT (26.0-36.0) Seconds D-Dimer (0-500) ng/mLFEU Sodium (136-145) mEq/L Potassium (3.5-5.1) mEq/L Chloride (98-107) mEq/L Carbon Dioxide (23-29) mEq/L BUN (6-20) mg/dL Creatinine (0.70-1.30) mg/dL Est GFR ( Amer) (> 60) Est GFR (Non-Af Amer) (> 60) BUN/Creatinine Ratio (6-26) Glucose (70-105) mg/dL Calculated Osmolality (280-300) Lactic Acid 0.6 (0.5-2.2) mmol/L Calcium (8.6-10.3) mg/dL Total Bilirubin 0.6 (0.3-1.0) mg/dL Direct Bilirubin 0.3 H (0.0-0.2) mg/dL Indirect Bilirubin 0.3 (0.0-1.2) mg/dL AST 11 L (13-39) Units/L ALT 17 (7-52) Units/L Alkaline Phosphatase 218 H (34-104) Units/L Troponin I (< 0.04) ng/mL Serum Total Protein 7.0 (6.4-8.9) g/dL Albumin 3.8 (3.5-5.7) g/dL Globulin 3.2 (2.4-3.5) g/dL Albumin/Globulin Ratio 1.2 (1.1-2.2) Urine Color Yellow (Yellow) Urine Clarity Clear (Clear) Urine pH 6.5 (5.0-8.0) pH Units Ur Specific [place] 1.024 (1.010-1.025) Urine Protein Trace (Neg-Trace) mg/dL Urine Glucose (UA) Normal (Normal) mg/dL Urine Ketones Negative (Negative) mg/dL Urine Blood Negative (Negative) Urine Nitrite Negative (Negative) Urine Bilirubin Negative (Negative) Urine Urobilinogen Normal (Normal) mg/dL Ur Leukocyte Esterase Small H (Negative) Urine Microscopic RBC 0-3 (0-3) per hpf Urine Microscopic WBC 5-15 H (0-3) per hpf Ur Squamous Epith Cells Many H (None-Few) per lpf Urine Bacteria None Seen (None-Few) per hpf Hyaline Casts None Seen (None-Few) per lpf Ur Culture Indicated? NO. A (NO) Critical Care Time Critical Care Time: Yes Total Critical Care Time: 35 Attestation: Critical care performed: Time is exclusive of separately billable procedures. Time includes: direct patient care, patient reassessment, coordination of patient care, interpretation of data (laboratory data, radiology data, and respiratory data), review of patient's medical records, medical consultation and documentation of patient care. Procedures included in critical care time: Procedures excluded from critical care time: Attestation Statement - Attestation Attestation: I examined this patient and my medical decision-making was reviewed with the Resident Physician. I agree with the documented findings, disposition and treatment plan as described except to the extent set forth below. Patient presents to the ED with chief complaint of left lower chest pain. Patient recently seen and admitted and diagnosed with pericardial effusion. Last night his pain worsen. Hurts to move and breathe. He has a low-grade fever. On examination he is in no distress. Lungs clear. Temp 100.2. Plan. Bedside oxygen shows a persistent pericardial effusion. He is not hypotensive or showing any other signs of tamponade. Cardiac workup. D-dimer. We will admit. D-dimer is elevated. We will check CTA. CTA reviewed. Patient with enlarging pericardial effusion and now the pleural effusion. Starting broad-spectrum antibiotics and will admit. Patient is not hypotensive or showing signs of tampanode. Chest X-Ray 05/25/18 18:02 IMPRESSION: Possible left lower lobe pneumonia D/ / Avery Live MD / Avery Live MD Interpreting Provider: Avery Live MD Chest CTA 05/25/18 19:05 IMPRESSION: No evidence of pulmonary embolism. Enlarging pericardial effusion. New moderate left and small right pleural effusions with adjacent airspace disease/ atelectasis. Stable pulmonary nodules. Please see follow-up recommendations as described on previous study of 05/17/2018. D/ / Prashant Buckner MD / Prashant Buckner MD Interpreting Provider: Prashant Buckner MD
[2018-05-25 18:50] LABS: INR 1.3; Prothrombin Time 14.6 Seconds (9.4-12.1)
[2018-05-25 18:52] LABS: Activated Partial Thrombo Time 32.9 Seconds (26.0-36.0)
--- NOTE | 2018-05-25 18:54 | Emergency Department Note ---
Disposition Clinical Impression: Pericardial effusion Chest pain Qualifiers: Chest pain type: unspecified Qualified Code(s): R07.9 - Chest pain, unspecified Pneumonia Qualifiers: Pneumonia type: due to unspecified organism Laterality: left Lung location: lower lobe of lung Qualified Code(s): J18.1 - Lobar pneumonia, unspecified organism Disposition: Admitted As Inpatient Condition: Good Time of Disposition: 21:33 General Adult HPI - General Chief complaint: ED Chest Pain Stated complaint: CP Time Seen by Provider: 05/25/18 17:47 Source: patient Mode of arrival: ambulatory Limitations: no limitations Nursing Notes Reviewed: Yes Vital Signs Reviewed: Yes - History of Present Illness HPI Narrative: Patient is a 48-year-old male that presents emergency Department with chest pain. Patient states that he was seen here last week and was admitted to the hospital for pericarditis. Patient states that his chest pain did improve however his chest pain returned during the night. States that he has having left-sided chest pain is nonradiating. Patient states that his pain is worse when he takes a deep breath. Patient states that this is a little bit different than when he had his pericarditis. States that when he leans for this does not relieve his pain. Patient denies any other cardiac issues. Pain Scale: 10 - Related Data Home Medications Medication Instructions Recorded Confirmed Aspirin [Lo-Dose Aspirin EC] 81 mg PO QPM 05/17/18 05/25/18 Escitalopram [Lexapro] 10 mg PO DAILY 05/17/18 05/25/18 Fludrocortisone Acetate [Florinef] 0.1 mg PO DAILY 05/17/18 05/25/18 Gemfibrozil [Lopid] 600 mg PO BID 05/17/18 05/25/18 Lansoprazole [Prevacid] 30 mg PO DAILY 05/17/18 05/25/18 Cholecalciferol (D-3) [Vitamin D] 5,000 unit PO DAILY 05/18/18 05/25/18 Mv-Mn/FA/Lycopene/Lut/Hb#178 [Toi 1 tab PO DAILY 05/18/18 05/25/18 Multivit For Men Caplet] [place]-3/Dha/Epa/Fish Oil [Fish Oil 1 cap PO BID 05/18/18 05/25/18 1,000 mg Softgel] Previous Rx's Medication Instructions Recorded Albuterol Sulfate [Albuterol 0 puff IH Q4HR #1 [id number] 05/26/18 Inhaler] Nicotine Patch [Nicoderm] 7 mg TD DAILY #30 patch.[id number] 05/26/18 Allergies Allergy/AdvReac Type Severity Reaction Status Date / Time No Known Allergies Allergy Verified 05/18/18 10:17 All systems ED: reviewed and negative except as stated. Constitutional: Denies: fever Cardiovascular: Reports: chest pain Respiratory: Reports: dyspnea Gastrointestinal: Denies: abdominal pain, nausea, vomiting Past Medical History - Past Medical History Medical history: Reports: hyperlipidemia, hypertension, syncope Psychiatric history: Reports: no psych history - Social History Smoking Status: Current every day smoker Smokeless Tobacco Status: No Alcohol use: Reports: occasionally Drug use: Reports: none Physical Exam - General Limitations: no limitations General appearance: alert, in no apparent distress - Head Head exam: atraumatic, normocephalic - Eye Eye exam: Present: normal appearance, EOMI - Neck Neck exam: Present: normal inspection, full ROM, trachea midline - Respiratory Respiratory exam: Present: normal lung sounds bilaterally. Absent: respiratory distress, wheezes - Cardiovascular Cardiovascular exam: Present: normal rhythm, tachycardia, normal heart sounds, + S2, +S3 - Abdominal Exam Abdominal exam: Present: soft, Non-Tender, normal bowel sounds - Neurological Exam Neurological exam: Present: alert, oriented X3 - Psychiatric Psychiatric exam: Present: normal affect, normal mood - Skin Skin exam: Present: warm, dry, intact Course - Consultations Consultation #1: I called and spoke with Dr. Han the on-call candle extrusion machine operator and reviewed this patient with him. He did not feel that the patient was in tamponade based on what I described to him. Dr. Han was in agreement with a stat echo being placed. The order will be placed in [email or web address]. Dr. Han will call the echo team for the echocardiogram to be performed. Time: 21:27 Consultation #2: I called and spoke with Dr. Howard admitting hospitalist and he has accepted the patient to their service. I informed Dr. Howard that Dr. Han will read the echocardiogram. Dr. Rosado he was comfortable with the patient being admitted knowing that Dr. Han will have a stat echo done and will be read tonight. Time: 21:31 Vital Signs Temperature 100.2 F H 05/25/18 17:42 Pulse Rate 109 05/25/18 17:42 Respiratory Rate 20 05/25/18 17:42 Blood Pressure 126/87 05/25/18 17:42 O2 Sat by Pulse Oximetry 96 05/25/18 17:42 Temperature 97.8 F 05/26/18 10:49 Pulse Rate 78 05/26/18 10:49 Respiratory Rate 18 05/26/18 10:49 Blood Pressure 111/75 05/26/18 10:49 O2 Sat by Pulse Oximetry 95 05/26/18 10:49 Oxygen Delivery Oxygen Delivery Room Air Medical Decision Making - MDM Narrative Medical decision making narrative: Due to the patient presenting to the emergency department with a temperature of 100.2, being tachycardic and having a history of pericarditis and returning with chest pain we will obtain laboratory testing including blood cultures and lactic acid. We will also obtain a chest x-ray, EKG and we performed a bedside echo which did show a small pleural effusion that is present. Patient was found to have an elevated d-dimer so a CT of the chest was ordered. Chest x- ray showed pneumonia in the left lower lobe. Due to the patient having been admitted to the hospital yesterday we will treat this as HCAP and the patient received vancomycin, Zosyn and Levaquin. Patient will need to be admitted to the hospital for further evaluation and management. Called and spoke with the admitting hospitalist Dr. Howard and he is accepted the patient to his service. Patient be admitted this time for further evaluation and management. - Lab Data Lab results reviewed: Yes I reviewed the patient's lab results. Result diagrams: 05/26/18 04:31 05/26/18 04:31 Lab Results 05/25/18 05/25/18 05/25/18 Range/Units 18:08 18:08 18:08 WBC 9.6 (4.3-11.1) K/mcL RBC 3.88 L (4.19-5.50) M/mcL Hgb 11.0 L (12.9-16.9) g/dL Hct 33.7 L (37.5-50.1) % MCV 86.9 (83.0-100.0) fL MCH 28.4 (28.0-33.3) pg MCHC 32.6 (31.6-35.5) g/dL RDW 13.3 (11.5-14.5) % Plt Count 333 (140-400) K/mcL MPV 9.9 (9.4-12.4) fL Immature Gran % 0.6 (0-4) % Seg Neutrophils % 79.0 % Lymphocytes % 9.8 % Monocytes % 7.9 % Eosinophils % 2.3 % Basophils % 0.4 % Neutrophils # 7.6 (1.6-8.9) K/mcL Lymphocytes # 0.9 (0.6-4.6) K/mcL Monocytes # 0.8 (0.0-1.3) K/mcL Eosinophils # 0.2 (0.0-0.6) K/mcL Basophils # 0.0 (0.0-0.2) K/mcL ESR (0-10) mm/hr PT 14.6 H (9.4-12.1) Seconds INR 1.3 APTT 32.9 (26.0-36.0) Seconds D-Dimer 02488 H (0-500) ng/mLFEU Sodium 136 (136-145) mEq/L Potassium 4.2 (3.5-5.1) mEq/L Chloride 102 (98-107) mEq/L Carbon Dioxide 25 (23-29) mEq/L BUN 15 (6-20) mg/dL Creatinine 0.83 (0.70-1.30) mg/dL Est GFR ( Amer) > 60 (> 60) Est GFR (Non-Af Amer) > 60 (> 60) BUN/Creatinine Ratio 18 (6-26) Glucose 98 (70-105) mg/dL Calculated Osmolality 283 (280-300) Lactic Acid (0.5-2.2) mmol/L Calcium 8.9 (8.6-10.3) mg/dL Magnesium (1.6-2.6) mg/dL Total Bilirubin (0.3-1.0) mg/dL Direct Bilirubin (0.0-0.2) mg/dL Indirect Bilirubin (0.0-1.2) mg/dL AST (13-39) Units/L ALT (7-52) Units/L Alkaline Phosphatase (34-104) Units/L Troponin I < 0.03 (< 0.04) ng/mL C-Reactive Protein (Less than 10) mg/L Serum Total Protein (6.4-8.9) g/dL Albumin (3.5-5.7) g/dL Globulin (2.4-3.5) g/dL Albumin/Globulin Ratio (1.1-2.2) Urine Color (Yellow) Urine Clarity (Clear) Urine pH (5.0-8.0) pH Units Ur Specific [place] (1.010-1.025) Urine Protein (Neg-Trace) mg/dL Urine Glucose (UA) (Normal) mg/dL Urine Ketones (Negative) mg/dL Urine Blood (Negative) Urine Nitrite (Negative) Urine Bilirubin (Negative) Urine Urobilinogen (Normal) mg/dL Ur Leukocyte Esterase (Negative) Urine Microscopic RBC (0-3) per hpf Urine Microscopic WBC (0-3) per hpf Ur Squamous Epith Cells (None-Few) per lpf Urine Bacteria (None-Few) per hpf Hyaline Casts (None-Few) per lpf Ur Culture Indicated? (NO) 05/25/18 05/25/18 05/25/18 Range/Units 19:47 19:47 19:54 WBC (4.3-11.1) K/mcL RBC (4.19-5.50) M/mcL Hgb (12.9-16.9) g/dL Hct (37.5-50.1) % MCV (83.0-100.0) fL MCH (28.0-33.3) pg MCHC (31.6-35.5) g/dL RDW (11.5-14.5) % Plt Count (140-400) K/mcL MPV (9.4-12.4) fL Immature Gran % (0-4) % Seg Neutrophils % % Lymphocytes % % Monocytes % % Eosinophils % % Basophils % % Neutrophils # (1.6-8.9) K/mcL Lymphocytes # (0.6-4.6) K/mcL Monocytes # (0.0-1.3) K/mcL Eosinophils # (0.0-0.6) K/mcL Basophils # (0.0-0.2) K/mcL ESR (0-10) mm/hr PT (9.4-12.1) Seconds INR APTT (26.0-36.0) Seconds D-Dimer (0-500) ng/mLFEU Sodium (136-145) mEq/L Potassium (3.5-5.1) mEq/L Chloride (98-107) mEq/L Carbon Dioxide (23-29) mEq/L BUN (6-20) mg/dL Creatinine (0.70-1.30) mg/dL Est GFR ( Amer) (> 60) Est GFR (Non-Af Amer) (> 60) BUN/Creatinine Ratio (6-26) Glucose (70-105) mg/dL Calculated Osmolality (280-300) Lactic Acid 0.6 (0.5-2.2) mmol/L Calcium (8.6-10.3) mg/dL Magnesium (1.6-2.6) mg/dL Total Bilirubin 0.6 (0.3-1.0) mg/dL Direct Bilirubin 0.3 H (0.0-0.2) mg/dL Indirect Bilirubin 0.3 (0.0-1.2) mg/dL AST 11 L (13-39) Units/L ALT 17 (7-52) Units/L Alkaline Phosphatase 218 H (34-104) Units/L Troponin I (< 0.04) ng/mL C-Reactive Protein (Less than 10) mg/L Serum Total Protein 7.0 (6.4-8.9) g/dL Albumin 3.8 (3.5-5.7) g/dL Globulin 3.2 (2.4-3.5) g/dL Albumin/Globulin Ratio 1.2 (1.1-2.2) Urine Color Yellow (Yellow) Urine Clarity Clear (Clear) Urine pH 6.5 (5.0-8.0) pH Units Ur Specific [place] 1.024 (1.010-1.025) Urine Protein Trace (Neg-Trace) mg/dL Urine Glucose (UA) Normal (Normal) mg/dL Urine Ketones Negative (Negative) mg/dL Urine Blood Negative (Negative) Urine Nitrite Negative (Negative) Urine Bilirubin Negative (Negative) Urine Urobilinogen Normal (Normal) mg/dL Ur Leukocyte Esterase Small H (Negative) Urine Microscopic RBC 0-3 (0-3) per hpf Urine Microscopic WBC 5-15 H (0-3) per hpf Ur Squamous Epith Cells Many H (None-Few) per lpf Urine Bacteria None Seen (None-Few) per hpf Hyaline Casts None Seen (None-Few) per lpf Ur Culture Indicated? NO. A (NO) 05/25/18 05/25/18 05/25/18 Range/Units 23:19 23:19 23:19 WBC (4.3-11.1) K/mcL RBC (4.19-5.50) M/mcL Hgb (12.9-16.9) g/dL Hct (37.5-50.1) % MCV (83.0-100.0) fL MCH (28.0-33.3) pg MCHC (31.6-35.5) g/dL RDW (11.5-14.5) % Plt Count (140-400) K/mcL MPV (9.4-12.4) fL Immature Gran % (0-4) % Seg Neutrophils % % Lymphocytes % % Monocytes % % Eosinophils % % Basophils % % Neutrophils # (1.6-8.9) K/mcL Lymphocytes # (0.6-4.6) K/mcL Monocytes # (0.0-1.3) K/mcL Eosinophils # (0.0-0.6) K/mcL Basophils # (0.0-0.2) K/mcL ESR 72 H (0-10) mm/hr PT (9.4-12.1) Seconds INR APTT (26.0-36.0) Seconds D-Dimer (0-500) ng/mLFEU Sodium (136-145) mEq/L Potassium (3.5-5.1) mEq/L Chloride (98-107) mEq/L Carbon Dioxide (23-29) mEq/L BUN (6-20) mg/dL Creatinine (0.70-1.30) mg/dL Est GFR ( Amer) (> 60) Est GFR (Non-Af Amer) (> 60) BUN/Creatinine Ratio (6-26) Glucose (70-105) mg/dL Calculated Osmolality (280-300) Lactic Acid (0.5-2.2) mmol/L Calcium (8.6-10.3) mg/dL Magnesium 2.0 (1.6-2.6) mg/dL Total Bilirubin (0.3-1.0) mg/dL Direct Bilirubin (0.0-0.2) mg/dL Indirect Bilirubin (0.0-1.2) mg/dL AST (13-39) Units/L ALT (7-52) Units/L Alkaline Phosphatase (34-104) Units/L Troponin I (< 0.04) ng/mL C-Reactive Protein 136 H (Less than 10) mg/L Serum Total Protein (6.4-8.9) g/dL Albumin (3.5-5.7) g/dL Globulin (2.4-3.5) g/dL Albumin/Globulin Ratio (1.1-2.2) Urine Color (Yellow) Urine Clarity (Clear) Urine pH (5.0-8.0) pH Units Ur Specific [place] (1.010-1.025) Urine Protein (Neg-Trace) mg/dL Urine Glucose (UA) (Normal) mg/dL Urine Ketones (Negative) mg/dL Urine Blood (Negative) Urine Nitrite (Negative) Urine Bilirubin (Negative) Urine Urobilinogen (Normal) mg/dL Ur Leukocyte Esterase (Negative) Urine Microscopic RBC (0-3) per hpf Urine Microscopic WBC (0-3) per hpf Ur Squamous Epith Cells (None-Few) per lpf Urine Bacteria (None-Few) per hpf Hyaline Casts (None-Few) per lpf Ur Culture Indicated? (NO) 05/25/18 05/26/18 05/26/18 Range/Units 23:19 04:31 04:31 WBC 7.2 (4.3-11.1) K/mcL RBC 3.97 L (4.19-5.50) M/mcL Hgb 11.1 L (12.9-16.9) g/dL Hct 34.5 L (37.5-50.1) % MCV 86.9 (83.0-100.0) fL MCH 28.0 (28.0-33.3) pg MCHC 32.2 (31.6-35.5) g/dL RDW 13.2 (11.5-14.5) % Plt Count 321 (140-400) K/mcL MPV 10.0 (9.4-12.4) fL Immature Gran % 0.6 (0-4) % Seg Neutrophils % 68.8 % Lymphocytes % 13.8 % Monocytes % 11.0 % Eosinophils % 5.4 % Basophils % 0.4 % Neutrophils # 4.9 (1.6-8.9) K/mcL Lymphocytes # 1.0 (0.6-4.6) K/mcL Monocytes # 0.8 (0.0-1.3) K/mcL Eosinophils # 0.4 (0.0-0.6) K/mcL Basophils # 0.0 (0.0-0.2) K/mcL ESR (0-10) mm/hr PT (9.4-12.1) Seconds INR APTT (26.0-36.0) Seconds D-Dimer (0-500) ng/mLFEU Sodium 137 (136-145) mEq/L Potassium 4.0 (3.5-5.1) mEq/L Chloride 105 (98-107) mEq/L Carbon Dioxide 24 (23-29) mEq/L BUN 12 (6-20) mg/dL Creatinine 0.73 (0.70-1.30) mg/dL Est GFR ( Amer) > 60 (> 60) Est GFR (Non-Af Amer) > 60 (> 60) BUN/Creatinine Ratio 16 (6-26) Glucose 93 (70-105) mg/dL Calculated Osmolality 283 (280-300) Lactic Acid (0.5-2.2) mmol/L Calcium 8.7 (8.6-10.3) mg/dL Magnesium (1.6-2.6) mg/dL Total Bilirubin (0.3-1.0) mg/dL Direct Bilirubin (0.0-0.2) mg/dL Indirect Bilirubin (0.0-1.2) mg/dL AST (13-39) Units/L ALT (7-52) Units/L Alkaline Phosphatase (34-104) Units/L Troponin I < 0.03 < 0.03 (< 0.04) ng/mL C-Reactive Protein (Less than 10) mg/L Serum Total Protein (6.4-8.9) g/dL Albumin (3.5-5.7) g/dL Globulin (2.4-3.5) g/dL Albumin/Globulin Ratio (1.1-2.2) Urine Color (Yellow) Urine Clarity (Clear) Urine pH (5.0-8.0) pH Units Ur Specific [place] (1.010-1.025) Urine Protein (Neg-Trace) mg/dL Urine Glucose (UA) (Normal) mg/dL Urine Ketones (Negative) mg/dL Urine Blood (Negative) Urine Nitrite (Negative) Urine Bilirubin (Negative) Urine Urobilinogen (Normal) mg/dL Ur Leukocyte Esterase (Negative) Urine Microscopic RBC (0-3) per hpf Urine Microscopic WBC (0-3) per hpf Ur Squamous Epith Cells (None-Few) per lpf Urine Bacteria (None-Few) per hpf Hyaline Casts (None-Few) per lpf Ur Culture Indicated? (NO) - Radiology Data Radiology results reviewed: Yes I reviewed the patient's radiology results. - EKG Data EKG #1 EKG attestation: Yes I reviewed and interpreted this EKG. EKG results narrative: EKG showed sinus tachycardia at a rate of 108 bpm, [place] interval 170, curious duration 68, QTc of 365 with a normal axis. There is no evidence of STEMI on EKG.
[2018-05-25 18:56] LABS: BUN/Creatinine Ratio 18 (6-26); Blood Urea Nitrogen 15 mg/dL (6-20); Calcium 8.9 mg/dL (8.6-10.3); Carbon Dioxide 25 mEq/L (23-29); Chloride 102 mEq/L (98-107); Glucose 98 mg/dL (70-105); Osmolality,Calculated 283 (280-300); Potassium 4.2 mEq/L (3.5-5.1); Sodium 136 mEq/L (136-145); Troponin I < 0.03 ng/mL (< 0.04); eGFR For African Americans > 60 (> 60); eGFR For Non-African Americans > 60 (> 60)
[2018-05-25] MEDS ORDERED: Isovue-370 500 ML INFUS..BTL IV ONE (19:05)
[2018-05-25] MEDS ORDERED: Levofloxacin 750 MG/150 ML 750 MG/150 ML BAG IVPB ONE (19:47)
[2018-05-25] MEDS ORDERED: Piperacillin/Tazobactam 3.375 GM in 0.9 % Sodium Chloride Mini Bag 100 ML IVPB ONE (19:47)
[2018-05-25 20:07] LABS: Bilirubin,Urine Negative (Negative); Blood,Urine Negative (Negative); Clarity,Urine Clear (Clear); Color,Urine Yellow (Yellow); Glucose,Urine (UA) Normal (Normal); Ketones,Urine Negative (Negative); Leukocyte Esterase,Urine Small (Negative); Nitrite,Urine Negative (Negative); PH,Urine 6.5 pH Units (5.0-8.0); Protein,Urine Trace mg/dL (Neg-Trace); Specific Gravity,Urine 1.024 (1.010-1.025); Urobilinogen,Urine Normal (Normal)
[2018-05-25 20:08] LABS: Bacteria,Urine None Seen per hpf (None-Few); Hyaline Casts,Urine None Seen per lpf (None-Few); RBC,Urine 0-3 per hpf (0-3); Squamous Epithelial Cell,Urine Many per lpf (None-Few)
[2018-05-25 20:19] LABS: Albumin 3.8 g/dL (3.5-5.7); Albumin/Globulin Ratio 1.2 (1.1-2.2); Bilirubin,Direct 0.3 mg/dL (0.0-0.2); Bilirubin,Indirect 0.3 mg/dL (0.0-1.2); Bilirubin,Total 0.6 mg/dL (0.3-1.0); Globulin 3.2 g/dL (2.4-3.5)
[2018-05-25] MEDS ORDERED: Ondansetron 4 MG/2 ML VIAL IVP PRN (22:41)
[2018-05-25] MEDS ORDERED: Nitroglycerin 0.4 MG TAB.SUBL SL PRN (22:41)
--- NOTE | 2018-05-25 22:42 | Internal Med History&Physical ---
Addendum entered and electronically signed by Melo Montoya DO 05/26/18 04:11: Correct Date of Encounter: 05/25/18 Original Note: <Melo Montoya - Last Filed: 05/26/18 03:46> Date of Encounter: 05/26/18 Time of Encounter: 22:29 Internal Medicine - H&P: HPI Chief complaint: CP Admitted From: Home History of present illness: Mr. Goodrich is a 48 year old male with a past medical history of hypertension, hyperlipidemia, tobacco dependence, and bilateral pulmonary nodules who presented complaining of left-sided chest pain and fever. Chest pain is 10 out of 10 in severity and worsened by taking a deep breath. Chest pain does not radiate or change in severity when he leans forward. He reports nonproductive cough. Of note, patient was recently admitted for non-specific pericardial effusion on 05/17/18, workup revealed positive myeloperoxidase antibody, with negative serology for SLE and RA. Repeat CT chest today showed enlarging pericardial effusion. Stat echo in the ED revealed no echocardiographic evidence of tamponade, trivial pericardial effusion. Past Med Surg Social Fam HX - Past Medical History Medical history: hyperlipidemia, hypertension, syncope Psychiatric history: no psych history - Past Surgical History Additional surgical history: eye surgery - Social History Smoking Status: Current every day smoker Smokeless Tobacco Status: No Alcohol use: occasionally Drug use: none Occupational status: employed ([employer]) Current living situation: Home - Independent - Family History Mother Hx Family Cardiac Disorders: Yes ([place], CHF) Father Age at : 55 Cause of : [place] Hx Family Cardiac Disorders: Yes ([place]) Internal Medicine - H&P: Meds Aspirin [Lo-Dose Aspirin EC] 81 mg PO QPM 05/17/18 [History] Escitalopram [Lexapro] 10 mg PO DAILY 05/17/18 [History] Fludrocortisone Acetate [Florinef] 0.1 mg PO DAILY 05/17/18 [History] Gemfibrozil [Lopid] 600 mg PO BID 05/17/18 [History] Lansoprazole [Prevacid] 30 mg PO DAILY 05/17/18 [History] Cholecalciferol (D-3) [Vitamin D] 5,000 unit PO DAILY 05/18/18 [History] Mv-Mn/FA/Lycopene/Lut/Hb#178 [Toi Multivit For Men Caplet] 1 tab PO DAILY 05/18 [History] [place]-3/Dha/Epa/Fish Oil [Fish Oil 1,000 mg Softgel] 1 cap PO BID 05/18/18 [ History] 3 Allergy/AdvReac Type Severity Reaction Status Date / Time No Known Allergies Allergy Verified 05/18/18 10:17 All Systems PM: A 10-system review of systems was performed and is negative for pertinent findings except as documented above in the HPI. - Constitutional Constitutional: fever(s), no anorexia, no chills, no fatigue, no lethargy, no weakness, no weight gain, no weight loss - EENT Eyes: no blurry vision, no diplopia Nose, mouth and throat: no nasal congestion, no sinus pain, no sore throat - Cardiovascular Cardiovascular ROS IM: chest pain, dyspnea, no palpitations, no syncope - Respiratory Respiratory: cough, pain on inspiration, pain with cough, no hemoptysis, no dyspnea on exertion, no wheezing, no chest congestion, no excessive phlegm production, no change in phlegm color - Gastrointestinal Gastrointestinal: no abdominal pain, no constipation, no diarrhea, no heartburn , no nausea, no vomiting - Genitourinary Genitourinary ROS male: no dysuria, no urinary frequency, no urinary urgency - Musculoskeletal Musculoskeletal ROS IM: no arthralgias, no back pain, no muscle cramps, no muscle weakness, no numbness, no tingling - Integumentary Integumentary IM: no erythema, no new lesions, no rash - Neurological Neurological ROS: no abnormal gait, no numbness, no tingling - Psychiatric Psychiatric: no anxiety, no depression - Endocrine Endocrine IM: no flushing, no polydipsia, no polyphagia, no polyuria - Hematologic/Lymphatic Hematologic/Lymphatic: no easy bleeding, no easy bruising - Constitutional Vitals: Temp Pulse Resp BP Pulse Ox 99.2 F 95 18 127/88 97 05/25/18 20:50 05/25/18 20:50 05/25/18 22:23 05/25/18 22:23 05/25/18 20:59 General appearance: Present: cooperative, A&O X 3, pleasant, no acute distress, answers questions appropriately - Head Head exam: Present: atraumatic, normocephalic - Eye Eye exam: Present: PERRL, conjuntiva pink, sclera anicteric Pupils: Present: PERRL - ENT ENT exam: Present: mucous membranes dry, normal oropharynx - Neck Neck exam general surgery: Present: supple, trachea midline. Absent: lymphadenopathy - Respiratory Respiratory exam: Present: CTAB. Absent: accessory muscle use, rales, rhonchi, wheezes - Cardiovascular Cardiovascular exam: Present: RRR, +S1, +S2. Absent: diastolic murmur, gallop, rubs, systolic murmur Additional comments: Reproducible chest pain with left rib palpation - GI/Abdominal GI/Abdominal exam: Present: normal bowel sounds, soft, no peritoneal signs. Absent: distended, guarding, tenderness - Extremities Exam Extremities exam: Present: warm, radial pulses palpable and symmetrical. Absent : calf tenderness, cyanotic, pedal edema - Back Exam Back exam: Present: normal inspection. Absent: paraspinal tenderness, tenderness - Neurological Exam Neurological exam: Present: CN II-XII intact, oriented X3, no focal deficits. Absent: pronater drift, facial droop, speech deficit - Psychiatric Psychiatric exam: Present: normal affect, normal mood - Skin Skin exam: Present: dry, intact, normal color, warm Internal Med - H&P Results - Labs CBC & Chem 7: 05/25/18 18:08 05/25/18 18:08 - Pulse Oximetry Interpretation Digit-Finger O2 Sat by Pulse Oximetry: 97 (On room air) - EKG Data -: EKG Interpreted by Myself EKG shows normal: sinus rhythm, intervals, QRS complexes Rate: tachycardia (Heart rate 108) - Impressions ITS Impressions Chest X-Ray 05/25/18 18:02 IMPRESSION: Possible left lower lobe pneumonia D/ / Avery Live MD / Avery Live MD Interpreting Provider: Avery Live MD Chest CTA 05/25/18 19:05 IMPRESSION: No evidence of pulmonary embolism. Enlarging pericardial effusion. New moderate left and small right pleural effusions with adjacent airspace disease/ atelectasis. Stable pulmonary nodules. Please see follow-up recommendations as described on previous study of 05/17/2018. D/ / Prashant Buckner MD / Prashant Buckner MD Interpreting Provider: Prashant Buckner MD Echocardiogram Limited Views 05/25/18 21:26 Impressions: There is a trivial pericardial effusion present, which has improved from prior study. There is no echocardiographic evidence of tamponade. Left Ventricular Wall Motion: Rest Echo Findings All wall segments showed normal motion. Findings: Study Quality * Technically adequate exam. ECG Findings * Normal sinus rhythm. Left Ventricle * LVEF 60%. * Normal LV chamber size, wall thickness and function. Right Ventricle * Normal right ventricular structure and function. Aorta * Normally sized aortic root. Pericardium * There is a trivial pericardial effusion present, which has improved from prior study. * There is no echocardiographic evidence of tamponade. IVC * Normal IVC dimensions and inspiratory collapse. - Assessment and plan (1) Pericarditis Current Visit: Yes Status: Acute Assessment and plan: Patient was recently admitted for non-specific pericardial effusion on 05/17/18, workup revealed positive myeloperoxidase antibody, a positive result has a high predictive value for microscopic polyangiitis (MPA) in patients with negative test results for systemic lupus erythematosus (antinuclear antibodies) and Goodpasture syndrome (glomerular basement membrane antibody). GBM antibody level pending SAAD and RF levels negative Repeat CT chest today showed enlarging pericardial effusion. Stat echo in the ED revealed no echocardiographic evidence of tamponade, trivial pericardial effusion. Start NSAIDs and colchicine Trend serial troponins No signs of ST elevations on EKG Continue telemetry monitoring Cardiology consulted Qualifiers: Pericarditis type: unspecified type Chronicity: chronic Chronic pericarditis complication: unspecified complication status Qualified Code(s): I31.9 - Disease of pericardium, unspecified (2) Pericardial effusion Current Visit: Yes Status: Acute Assessment and plan: Repeat CT chest today showed enlarging pericardial effusion. Stat echo in the ED revealed no echocardiographic evidence of tamponade, trivial pericardial effusion. (3) Pulmonary nodules Current Visit: No Status: Chronic Assessment and plan: Continue outpatient management Tobacco cessation discussed (4) Tobacco abuse Current Visit: No Status: Chronic Assessment and plan: Tobacco cessation discussed Nicotine patch ordered (5) DVT prophylaxis Current Visit: Yes Status: Chronic Assessment and plan: Heparin subcutaneous TID (6) HAP (hospital-acquired pneumonia) Current Visit: Yes Status: Suspected Assessment and plan: CXR revealed possible left lower lobe pneumonia CTA revealed new moderate left and small right pleural effusions with adjacent airspace disease/ atelectasis Patient was started on empiric vancomycin, Zosyn, and Levaquin in the ED Encourage incentive spirometry - Time Spent With Patient Total time spent is greater than 50% in coordination of care (as documented) at patient's floor/unit and/or counseling patient: <Garrison Howard - Last Filed: 05/26/18 06:24> Date of Encounter: 05/26/18 Time of Encounter: 05:40 - Constitutional Constitutional: chills, fever(s) - EENT Eyes: no blurry vision Ears: no ear pain, no tinnitus Nose, mouth and throat: no nasal congestion, no sore throat - Cardiovascular Cardiovascular ROS IM: chest pain, dyspnea - Respiratory Respiratory: cough, pain on inspiration, pain with cough, no chest congestion, no excessive phlegm production, no change in phlegm color - Gastrointestinal Gastrointestinal: no abdominal pain, no diarrhea, no vomiting - Genitourinary Genitourinary ROS male: no dysuria, no hematuria - Integumentary Integumentary IM: no rash, no jaundice - Endocrine Endocrine IM: no polydipsia, no polyuria - Allergic/Immunologic Allergic/Immunologic: no wheezing - Constitutional Vitals: Temp Pulse Resp BP Pulse Ox 98.3 F 79 18 116/75 94 05/26/18 05:06 05/26/18 05:06 05/26/18 05:06 05/26/18 05:06 05/26/18 05:06 General appearance: Present: cooperative, A&O X 3, pleasant, no acute distress - Head Head exam: Present: atraumatic - Eye Eye exam: Present: PERRL. Absent: scleral icterus - ENT ENT exam: Present: mucous membranes dry, normal oropharynx - Neck Neck exam general surgery: Present: supple - Respiratory Respiratory exam: Absent: rales (+ splinting and decreased breath sounds in left base), rhonchi, wheezes - Cardiovascular Cardiovascular exam: Present: RRR, +S1, +S2. Absent: diastolic murmur, systolic murmur - GI/Abdominal GI/Abdominal exam: Present: normal bowel sounds, soft. Absent: tenderness - Extremities Exam Extremities exam: Present: warm. Absent: calf tenderness, pedal edema - Back Exam Back exam: Absent: CVA tenderness (L), CVA tenderness (R) - Skin Skin exam: Present: dry, intact, warm Internal Med - H&P Results - Labs CBC & Chem 7: 05/26/18 04:31 05/26/18 04:31 Labs: Short CBC 05/26/18 Range/Units 04:31 WBC 7.2 (4.3-11.1) K/mcL Hgb 11.1 L (12.9-16.9) g/dL Hct 34.5 L (37.5-50.1) % Plt Count 321 (140-400) K/mcL Neutrophils # 4.9 (1.6-8.9) K/mcL BMP 05/26/18 04:31 Sodium 137 Potassium 4.0 Chloride 105 Carbon Dioxide 24 BUN 12 Creatinine 0.73 Glucose 93 Calcium 8.7 Cardiac Enzymes 05/25/18 05/26/18 Range/Units 23:19 04:31 Troponin I < 0.03 < 0.03 (< 0.04) ng/mL - EKG Data -: EKG Interpreted by Myself EKG shows normal: sinus rhythm Rate: tachycardia - Diagnostic Studies CT scan - chest Status: image reviewed by me (large pericardial effusion noted and left pleural effusion as well) - Attending Attestation I discussed the patient KLUTI KAAH, past medical history, review of systems, lab data , and exam findings with Dr. Montoya. I then saw and examined patient independently. Additionally, I discussed the case extensively with the ER staff gaye and requested stat echocardiogram to evaluate for possible cardiac tamponade. I personally reviewed his CT scan and noted the moderate to large sized pericardial effusion which was worse in comparison to the prior CT a week ago. Given his physical presentation and symptoms, I was worried about possible development of tamponade. Therefore, a stat echo was performed and interpreted by cardiology. Per cardiology, the effusion was actually decreased rather than increase as noted by radiology. Additionally, there is no tamponade physiology. He appears to be hemodynamically stable and gives a history suggestive more so of pneumonia with pleuritic type chest pain. I agree with antibiotic choices ordered and the plan of care as noted by Dr. Montoya. Additionally, we will ask cardiology to see patient in consultation to follow-up and guide us regarding his Pericardial effusion and possible need for future follow-up and/or intervention. Other than my comments noted above and documented exam findings, I agree with Dr. Montoya's assessment and plan. - Assessment and plan (1) Pericardial effusion Current Visit: Yes Status: Acute (2) DVT prophylaxis Current Visit: Yes Status: Chronic (3) Tobacco abuse Current Visit: No Status: Chronic (4) Pericarditis Current Visit: Yes Status: Acute Qualifiers: Pericarditis type: unspecified type Chronicity: chronic Chronic pericarditis complication: unspecified complication status Qualified Code(s): I31.9 - Disease of pericardium, unspecified (5) Pulmonary nodules Current Visit: No Status: Chronic (6) HAP (hospital-acquired pneumonia) Current Visit: Yes Status: Suspected - Time Spent With Patient Total time spent is greater than 50% in coordination of care (as documented) at patient's floor/unit and/or counseling patient:
[2018-05-25] MEDS ORDERED: Naloxone 0.4 MG/ML INJ IVP PRN (22:55)
[2018-05-25] MEDS ORDERED: Acetaminophen 325 MG TABLET PO PRN (22:55)
[2018-05-26] MEDS ORDERED: Vancomycin (wt based) 1,000 MG VIAL IVPB SCH (01:00)
[2018-05-26 05:07] LABS: Basophils % 0.4 %; Eosinophils # 0.4 K/mcL (0.0-0.6); Eosinophils % 5.4 %; Hematocrit 34.5 % (37.5-50.1); Hemoglobin 11.1 g/dL (12.9-16.9); Immature Granulocytes % 0.6 % (0-4); Lymphocytes % 13.8 %; Mean Corpuscular HGB Conc 32.2 g/dL (31.6-35.5); Mean Corpuscular Volume 86.9 fL (83.0-100.0); Monocytes # 0.8 K/mcL (0.0-1.3); Neutrophils # 4.9 K/mcL (1.6-8.9); Platelet Count 321 K/mcL (140-400); Red Blood Count 3.97 M/mcL (4.19-5.50); Red Cell Distribution Width 13.2 % (11.5-14.5); Segmented Neutrophils % 68.8 %
[2018-05-26 05:26] LABS: BUN/Creatinine Ratio 16 (6-26); Blood Urea Nitrogen 12 mg/dL (6-20); Calcium 8.7 mg/dL (8.6-10.3); Carbon Dioxide 24 mEq/L (23-29); Chloride 105 mEq/L (98-107); Glucose 93 mg/dL (70-105); Osmolality,Calculated 283 (280-300); Sodium 137 mEq/L (136-145); Troponin I < 0.03 ng/mL (< 0.04); eGFR For African Americans > 60 (> 60); eGFR For Non-African Americans > 60 (> 60)
[2018-05-26] MEDS ORDERED: *HR* Heparin 5,000 UNIT/ML VIAL SQ SCH (06:00)
[2018-05-26] MEDS ORDERED: Ibuprofen 600 MG TABLET PO SCH (06:00)
[2018-05-26] MEDS ORDERED: Pantoprazole 40 MG VIAL IVP SCH (06:00)
[2018-05-26] MEDS ORDERED: Piperacillin/Tazobactam 3.375 GM in 0.9 % Sodium Chloride Mini Bag 100 ML IVPB SCH (08:00)
--- NOTE | 2018-05-26 08:43 | Event Note ---
Date of Encounter: 05/26/18 Time of Encounter: 08:45 - Cardiology Event Note Echo: Impressions: There is a trivial pericardial effusion present, which has improved from prior study. There is no echocardiographic evidence of tamponade. Left Ventricular Wall Motion: Rest Echo Findings All wall segments showed normal motion. Discussed with primary service, will c/s if warranted.
[2018-05-26] MEDS ORDERED: Multivit/Ca/Min/Fe/FA 1 TAB TABLET PO SCH (09:00)
[2018-05-26] MEDS ORDERED: Cholecalciferol (D-3) 1,000 UNIT TABLET PO SCH (09:00)
[2018-05-26] MEDS ORDERED: [Fish Oil 1,000 Mg PO SCH (09:00)
[2018-05-26] MEDS ORDERED: Nicotine 7 MG PATCH.TD24 TD SCH (09:00)
[2018-05-26] MEDS ORDERED: Colchicine 0.6 MG TABLET PO SCH (09:00)
--- NOTE | 2018-05-26 09:58 | Discharge Summary ---
<Chin Deluna - Last Filed: 05/26/18 20:48> - NOTES TO OUTPATIENT PROVIDER Notes to Outpatient Provider: Mr Elliott was admitted for chest pain on 05/25. He was admitted for a similar presentation 10 days ago but this time he endorses the pain was more on the left side of the lung. He denies any SOB, productive cough, dyspea or orthopnea. On examination he had no bilateral wheezing, no egophony or tactile fremitus. He was not leukocytotic on admission , but his labs were positive for myeloperoxidase antibody. Patient was goven Vanc for a day but owing to unremarkable clinical presentation , and normal CBC , we are discharging him for levofloxacin 750mg for 5 days. I will also give him a prescription of albuterol inhaler, Nicotine patch. He has been counselled on smoking cessation. He should follow up with the Cardiology / Pulmonology. Date of Encounter: 05/26/18 Time of Encounter: 09:30 - Discharge Diagnosis (1) Chest pain Priority: Primary Status: Resolved Qualifiers: Chest pain type: other chest pain Qualified Code(s): R07.89 - Other chest pain; R07.8 - Other chest pain (2) Pericarditis Priority: Secondary Status: Acute Qualifiers: Pericarditis type: unspecified type Chronicity: chronic Chronic pericarditis complication: unspecified complication status Qualified Code(s): I31.9 - Disease of pericardium, unspecified (3) HAP (hospital-acquired pneumonia) Priority: Secondary Status: Suspected (4) Pericardial effusion Priority: Secondary Status: Acute (5) Tobacco abuse Priority: Secondary Status: Chronic (6) Pulmonary nodules Priority: Secondary Status: Chronic Hospital course: Mr. Goodrich is a 48 year old male Mr Elliott was admitted for chest pain on 05/25. He was admitted for a similar presentation 10 days ago but this time he endorses the pain was more on the left side of the lung. He denies any SOB, productive cough, dyspea or orthopnea. On examination he had no bilateral wheezing, no egophony or tactile fremitus. He was not leukocytotic on admission, but his labs were positive for myeloperoxidase antibody. Patient was goven Vanc for a day but owing to unremarkable clinical presentation , and normal CBC, we are discharging him for levofloxacin 750mg for 5 days. I will also give him a prescription of albuterol inhaler, Nicotine patch. He has been counselled on smoking cessation. He should follow up with the Cardiology / Pulmonology. - Time Spent with Patient Total time spent providing and/or coordinating discharge services: - Discharge Medications Prescriptions: Albuterol Sulfate [Albuterol Inhaler] 0 puff IH Q4HR #1 hfa.aer.ad Nicotine Patch [Nicoderm] 7 mg TD DAILY #30 patch.td24 Home Medications: Aspirin [Lo-Dose Aspirin EC] 81 mg PO QPM 05/17/18 [History] Escitalopram [Lexapro] 10 mg PO DAILY 05/17/18 [History] Fludrocortisone Acetate [Florinef] 0.1 mg PO DAILY 05/17/18 [History] Gemfibrozil [Lopid] 600 mg PO BID 05/17/18 [History] Lansoprazole [Prevacid] 30 mg PO DAILY 05/17/18 [History] Cholecalciferol (D-3) [Vitamin D] 5,000 unit PO DAILY 05/18/18 [History] Mv-Mn/FA/Lycopene/Lut/Hb#178 [Toi Multivit For Men Caplet] 1 tab PO DAILY 05/18 [History] [place]-3/Dha/Epa/Fish Oil [Fish Oil 1,000 mg Softgel] 1 cap PO BID 05/18/18 [ History] Albuterol Sulfate [Albuterol Inhaler] 0 puff IH Q4HR #1 hfa.aer.ad 05/26/18 [Rx] Nicotine Patch [Nicoderm] 7 mg TD DAILY #30 patch.td24 05/26/18 [Rx] Allergies/Adverse Reactions: 3 Allergy/AdvReac Type Severity Reaction Status Date / Time No Known Allergies Allergy Verified 05/18/18 10:17 Date of admission: 05/26/18 06:25 Primary care physician: Lore De Jesus CNP - Constitutional Vitals: Temp Pulse Resp BP Pulse Ox 97.7 F 88 18 104/68 96 05/26/18 07:04 05/26/18 07:04 05/26/18 07:04 05/26/18 07:04 05/26/18 07:04 General appearance: Present: cooperative, A&O X 3, pleasant, no acute distress - Head Head exam: Present: atraumatic, normal inspection, normocephalic - Respiratory Respiratory exam: Present: CTAB Additional comments: no rales, ronchi, or wheezing, mild chest pain, - Cardiovascular Cardiovascular exam: Present: RRR, +S1, +S2 Additional comments: PMI not displaced - GI/Abdominal Additional comments: soft, non-distended, no guarding or rebound tenderness - Extremities Exam Additional comments: full ROM, pulses symmetrical, skin wanrm and good turgor - Patient Status Disposition: Home, Self-Care Condition: Good - Discharge Instructions Instructions: Nicotine (Absorbed through the skin), Chest Pain (DC) Follow Up With: Rody Benoit MD [Partnered Physician] - 06/02/18 10:00 am (Please follow up as schedule) Lore De Jesus CNP [Primary Care Provider] - (Patient has to call for an appointment per PCP office...) <Leandro Park - Last Filed: 05/27/18 08:01> Date of Encounter: 05/26/18 - Discharge Diagnosis (1) Pericardial effusion Status: Acute (2) Tobacco abuse Status: Chronic (3) Pericarditis Status: Acute Qualifiers: Pericarditis type: unspecified type Chronicity: chronic Chronic pericarditis complication: unspecified complication status Qualified Code(s): I31.9 - Disease of pericardium, unspecified (4) Pulmonary nodules Status: Chronic (5) HAP (hospital-acquired pneumonia) Status: Suspected Hospital course: Mr. Goodrich is a 48 year old male - Time Spent with Patient Total time spent providing and/or coordinating discharge services: Date of admission: 05/26/18 06:25 Primary care physician: Lore De Jesus CNP - Constitutional Vitals: Temp Pulse Resp BP Pulse Ox 97.8 F 78 18 111/75 95 05/26/18 10:49 05/26/18 10:49 05/26/18 10:49 05/26/18 10:49 05/26/18 10:49 - Attending Attestation I examined this patient and my medical decision-making was reviewed with the Resident Physician Dr. Deluna. I agree with the documented findings, disposition and treatment plan as described except to the extent set forth below. Mr. Goodrich is a 48 year old male with a past medical history of hypertension, hyperlipidemia, tobacco dependence, and bilateral pulmonary nodules who presented to ER complaining of left-sided chest pain and fever. Chest pain is 10 out of 10 in severity and worsened by taking a deep breath. He reports nonproductive cough. Of note, patient was recently admitted for non-specific pericardial effusion on 05/17/18, workup revealed positive myeloperoxidase antibody, with negative serology for SLE and RA. Repeat CT chest today showed enlarging pericardial effusion. Stat echo in the ED revealed no echocardiographic evidence of tamponade, trivial pericardial effusion. Pt does have acute CAP which improved today. he is breathing comfortably on RA. Remained afebrile. So will d/c him home with PO Abx today. Counseled to quit smoking. Regarding his CP, serial troponin were negative and his EKG did not show any ischemic changes. Recommend to f/u with PCP , Cardiology and [facility] as an out pt. Gen: A, A< O x 3 Chest: Diminished BS b/l Heart: S1S2+ RRR
[2018-05-26 10:53] VITALS: BP 111/75
--- NOTE | 2018-05-26 17:45 | Electrocardiograph Report ---
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
[2018-05-26] MEDS ORDERED: Aspirin Enteric Coated 81 MG Tablet PO SCH (18:00)
[2018-05-26] MEDS ORDERED: Levofloxacin 750 MG/150 ML 750 MG/150 ML BAG IVPB SCH (21:00)
[2018-05-30 08:16] LABS: GBM IgG Multiplex Bead Assay 0 AU/mL (0-19); Glomerular Basement Memb IgG NEGATIVE (Negative)
== END 2018-05-26 13:30 | disposition home or self-care (01) | DRG 314 ==
LOC: 2ANU 17:39 → EMEROO 17:39 → 2ANU 22:40
PROVIDERS: ADMIT Pediatrics; ATTEND Pediatrics